=== PATIENT | male | born 1990 | race Caucasian/White ===

== ENCOUNTER 2022-12-01 15:50 | Emergency (ER) | payer OTHER, SELFPAY ==
[2022-12-01 16:07] VITALS: BP 145/77; PULSE 63; RESP 16; TEMP 36.7; O2SAT 100
--- NOTE | 2022-12-01 16:24 | ED.GENADULT ---
HPI - General Adult General Chief complaint: Skin/Abscess/Foreign Body Stated complaint: LT Ear Irritation Time Seen by Provider: 12/01/22 16:24 Source: patient, RN notes reviewed and old records reviewed Mode of arrival: ambulatory Limitations: no limitations History of Present Illness HPI narrative: 32-year-old male presents to the [facility] with concerns over a bug flying in his left ear around noon today. States that he felt fluttering and a buzzing sound. No longer feeling the buzzing but feels a pressure. Onset (ago): hour(s) (4) Related Data Allergies Allergy/AdvReac Type Severity Reaction Status Date / Time No Known Allergies Allergy Verified 12/01/22 15:56 Review of Systems Review of Systems: All systems reviewed & are unremarkable except as noted in HPI and below Constitutional: Constitutional: Reports no additional constitutional complaints Eyes: Eyes: Reports no additional eye complaints ENT: Reports as per HPI Cardiovascular: Cardiovascular: Reports no additional cardiovascular complaints, Denies chest pain and Denies dyspnea Respiratory: Respiratory: Reports no additional respiratory complaints, Denies chest congestion, Denies cough and Denies dyspnea Gastrointestinal: Gastrointestinal: Reports no additional gastrointestinal complaints, Denies abdominal pain, Denies nausea and Denies vomiting Musculoskeletal: Musculoskeletal: Reports no additional musculoskeletal complaints Integumentary/Breasts: Skin/Breast: Reports system reviewed and no additional complaints, except as docu Neurologic: Reports system reviewed and no additional complaints, except as documented Psychiatric: Psychiatric: Reports no additional psychiatric complaints Allergic/Immunologic: Allergic/Immunologic: Reports no additional allergic/immunologic complaints PMFSH Comments At the time of my signature, I reviewed and agree with the nursing past medical, surgical, social, and family history. There is no relevant family history pertinent to the patient complaint. Exam Const: General: cooperative, healthy appearing, comfortable, no acute distress, well developed, alert and well nourished Nutritional Appearance: well nourished Orientation/consciousness: patient oriented x3 Limitations: no limitations HENMT: Head: normal to inspection Ears: hearing grossly normal bilaterally, external ears normal, TM's normal bilaterally, mastoids normal and Abnormal EAC present erythema on the left; no edema, no EA tenderness, no foreign body and no otic discharge Face/Nose/Sinus: Normal external nose present, Normal nares present, Normal nasal mucous membranes and turbinates present and normal facial exam Face and sinus: normal facial exam Mouth: Yes Normal oral and palatal mucosa present, Yes lip normal and Yes moist mucous membranes Throat: posterior oropharynx normal, tonsils normal and uvula midline Eyes: General: appearance normal, both eyes and all related structures Alignment and Position: alignment normal Periorbital: periorbital findings normal Pupils: Equal, round and reactive pupils present EOM: EOMs intact bilaterally Neck: Neck: normal visual inspection, full ROM, no lymphadenopathy and no meningeal signs Chest: Chest palpation & inspection: normal inspection of the chest Resp: Effort & Inspection: normal respiratory effort and able to speak in complete sentences Auscultation: clear to auscultation bilaterally, no crackles, no rales, no rhonchi and no wheezes Cardio: Rate: regular rate Rhythm: regular rhythm Back/Spine/Pelvis: Cervical Spine: cervical ROM normal Skin: General skin exam: normal color and no rashes or lesions noted Lesions: no lesions Rashes: no rashes Wounds: no wounds Neuro: General: patient oriented x3, gait normal, tone normal, moves all extremities and no meningeal signs Cranial nerves: Yes Equal, round and reactive pupils present Cognition (Neuro): normal cognition Speech: normal speech Gait exam (N
== END 2022-12-01 16:36 | disposition home or self-care (01) ==
PROVIDERS: Emergency Provider Nurse Practitioner
DX: H61.892 Other specified disorders of left external ear (principal)
CPT/HCPCS: 99213; G0463

== ENCOUNTER 2024-03-08 16:34 | Emergency (ER) | payer OTHER, SELFPAY ==
--- NOTE | 2024-03-08 16:48 | ED_ITS ---
HPI - General Adult General Chief complaint: Skin/Abscess/Foreign Body Stated complaint: Bump on the chest and RT Arm Time Seen by Provider: 03/08/24 16:49 Source: patient Mode of arrival: ambulatory Limitations: no limitations History of Present Illness HPI narrative: 33-year-old male patient presents to [facility] with complaints of bumps on left side of the chest and the right arm. Patient states the 1 on the right arm has been there for about a month than the 1 on the chest he noticed a few days ago. Denies any pain or itching to the areas denies redness warmth. Denies fevers, body aches or chills. Denies any bothersome symptoms from the bombs. Patient states he has had a lipoma removed before and just wanted to come and get them checked out today. Related Data Allergies Allergy/AdvReac Type Severity Reaction Status Date / Time No Known Allergies Allergy Verified 03/08/24 17:09 Review of Systems Review of Systems: CONSTITUTIONAL: Denies fever, chills, or sweats. EYES: Denies visual changes, redness, or discharge. ENT: Denies rhinorrhea, congestion, sore throat, or otalgia. CARDIOVASCULAR: Denies chest pain, palpitations, or edema. RESPIRATORY: Denies cough or dyspnea. GASTROINTESTINAL: Denies abdominal pain, nausea, vomiting, or diarrhea. GENITOURINARY: Denies dysuria or hematuria. SKIN: Denies rash or itching. Positive bumps on to the left chest and the left upper arm MUSCULOSKELETAL: Denies back pain, joint pain, or myalgia. NEUROLOGIC: Denies headache, numbness, or weakness. PSYCHIATRIC: Denies anxiety or depression. PMFSH Comments At the time of my signature I agree with nursing past medical history, surgical, social, and family history. There is no relevant family history pertinent to the presenting complaint. Exam Narrative: GENERAL: Well-appearing, well-nourished, and in no acute distress. HEAD: Normocephalic, atraumatic. EYES: PERRLA and EOMI. ENT: Nares clear, no rhinorrhea or epistaxis. Mucous membranes moist. NECK: Supple. No lymphadenopathy CHEST: Clear to auscultation. No respiratory distress. HEART: Regular rate and rhythm. No murmur heard. Normal peripheral pulses. ABDOMEN: Soft, nontender, nondistended, normal active bowel sounds. EXTREMITIES: Normal range of motion. No edema. SKIN: Warm, dry, no rash. patient has a approximate 1 cm x 1 cm mobile lipoma noted to the left upper arm. No redness no warmth to the touch. No itchiness noted. Patient also has a small less than 0.5 cm lipoma noted to the left lat eral chest area no redness, no warmth, no open wounds or drainage. NEURO: No focal deficits. Alert and oriented x3. Course Course Level of Care: Express Care Visit Vital Signs Vital signs: Vital signs reviewed. Medical Decision Making MDM Narrative Medical decision making narrative: Discussed with patient that most likely of benign lipoma. Encouraged patient to follow-up with his primary doctor or Dermatology for further evaluation. Discussed with patient that we do not have ultrasound or anything that could come up with a confirmed diagnosis here. Discussed with patient that it does not appear to be infected and there is no fevers body aches or chills which is reassuring. Patient verbalized understanding denies any other questions or concerns at this time. Differential Diagnosis Differential Diagnosis: Differential diagnosis: Abscess, cellulitis, hidradenitis, laceration, puncture wound. Critical Care Time Critical Care Time Critical Care Time: No Discharge Plan Discharge Clinical Impression: Lipoma of abdominal wall Lipoma of arm Qualifiers: Laterality: right Qualified Code(s): D17.21 - Benign lipomatous neoplasm of skin and subcutaneous tissue of right arm Patient Disposition: Home, Self-Care Condition: Stable Instructions: Antibiotic Form, Lipoma (ED), Soft Tissue Mass (ED) Additional Instructions: Watch for worsening signs of infection including redness, increase in pain, increase in size or any other concerning factors then please come back for re- evaluation. Please follow-up with your primary doctor for further evaluation and treatment as need Patient Language: [place] Leonean Prescriptions: No Action [id number] 3.5-10,000-1 mg/mL-unit/mL-% drops,suspension 4 drp LEFT EAR Q8H 5 Days Qty: 10 0RF Follow-up/Referrals: Leesa,Mildred Yoo [Other] Time of Disposition: 17:12
[2024-03-08 17:00] VITALS: BP 157/86; PULSE 60; RESP 20; TEMP 36.7; O2SAT 99
--- OUTSIDE RECORDS SUMMARY | 2024-03-12 23:57 | XMS_ITS | Encounter Summary ---
Author Organization [facility] Address [address] [place] [address]. [place] [address] [place] [address] Care Team Providers Care Lead Sales Consultant Name Role Phone Mildred Landers [facility] Primary Care Provider + Encounter Details Date Type Department Care Team (Latest Contact Info) Description 12/19/2018 3:06 PM T Hospital Encounter [facility] [address] [place] [address] Mildred Landers, [facility] [address] [facility], [address] [place] [address] Discharge Disposition: Home or Self Care (Routine Discharge) Social History Tobacco Use Types Packs/Day Years Used Date Smoking Tobacco: Never Smokeless Tobacco: Never Alcohol Use Standard Drinks/Week Comments No 0 (1 standard drink = 0.6 oz pur e alcohol) AUDIT-C Answer Date Recorded Frequency of Alcohol Consumption Never 11/16/2018 Average Number of Drinks Not on file 019 Frequency of Binge Drinking Not on file 10/25 Sex and Gender Information Value Date Recorded Sex Assigned at Not on file 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 30 tablet 2 12/13/2018 09/01/2019 documented as of this encounter Progress Notes * KIERSTEN Bonner - 12/20/2018 8:29 AM CDT BEATAI present. documented in this encounter Plan of Treatment Not on file documented as of this encounter Procedures Procedure Name Priority Date/Time Associated Diagnosis Comments CBC W/DIFF AUTOMATED Routine 12/19/2018 3:19 PM CDT Cough documented in this encounter Results * (ABNORMAL) CBC W/DIFF AUTOMATED (12/19/2018 3:19 PM CDT) WBC 10.0 4.8 - 10.8 x10'3/uL 12/19/2018 4:59 PM CDT [facility] RBC 4.77 4.50 - 5.90 x10'6/uL 12/19/2018 4:59 PM CDT [facility] HGB 13.4(L) 13.5 - 17.5 G/DL 12/19/2018 4:59 PM CDT [facility] HCT 41.0 41 - 53 % 12/19/2018 4:59 PM CDT [facility] MCV 86.0 80 - 100 FL 12/19/2018 4:59 PM CDT [facility] MCH 28.1 26.0 - 34.0 PG 12/19/2018 4:59 PM CDT [facility] MCHC 32.7 31.0 - 37.0 G/DL 12/19/2018 4:59 PM CDT [facility] RDW 14.0 11.5 - 14.5 % 12/19/2018 4:59 PM CDT [facility] PLT 382(H) 150 - 350 x10'3/uL 12/19/2018 4:59 PM CDT [facility] NEUTROPHILS % 26.3(L) 50 - 70 % 12/19/2018 5:53 PM CDT [facility] LYMPHOCYTES % 59.8(H) 18 - 42 % 12/19/2018 5:53 PM CDT [facility] MONOCYTES % 11.2(H) 2.0 - 11.0 % 12/19/2018 5:53 PM CDT [facility] EOSINOPHILS 1.3 1.0 - 3.0 % 12/19/2018 5:53 PM CDT [facility] BASOPHILS 1.4(H) 0.0 - 1.0 % 12/19/2018 5:53 PM CDT [facility] ABS. NEUTROPHILS TOTAL 2.63 1.69 - 7.81 x10'3/uL 12/19/2018 5:53 PM CDT [facility] PLT MORPH. NORMAL 12/19/2018 5:53 PM CDT [facility] RBC MORPHOLOGY NORMAL 12/19/2018 5:53 PM CDT [facility] 12/19/2018 3:19 PM CDT Mildred Landers [facility] Final Re sult [facility] [address] [place] [address], documented in this encounter Visit Diagnoses Diagnosis Cough documented in this encounter Care Teams Lead Sales Consultant Relationship Specialty Start Date End Date Mildred Landers, [facility]- [address], [address] [place] [address] PCP - General NURSE PRACTITIONER 12/13/18 documented as of this encounter
--- OUTSIDE RECORDS SUMMARY | 2024-03-12 23:57 | XMS_ITS | Encounter Summary ---
Author Organization [facility] Address [address] [place] [address]. [place], [place] [address] [place] [address] Care Team Providers Care Kiosk Sales Representative Name Role Phone Unavailable Primary Care Provider Unavailabl e Encounter Details Date Type Department Care Team (Late st Contact Info) Description 01/29/[address] 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
--- OUTSIDE RECORDS SUMMARY | 2024-03-12 23:57 | XMS_ITS | Encounter Summary ---
Author Organization [facility] Address [address] [place] [address]. 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
--- OUTSIDE RECORDS SUMMARY | 2024-03-12 23:57 | XMS_ITS | Encounter Summary ---
Author Organization [facility] Address [address] [place] [address]. [place], [place] [address] [place] [address] Care Team Providers Care Can Vacuum Tester Name Role Phone Mildred Landers [facility] Primary Care Provider + Encounter Details Date Type Department Care Team (Latest Contact Info) Description 12/26/2021 Travel Social History Tobacco Use Types Packs/Day Years Used Date Smoking Tobacco: Never Smokeless Tobacco: Never Alcohol Use Standard Drinks/Week Comments No 0 (1 standard drink = 0.6 oz pur e alcohol) AUDIT-C Answer Date Recorded Frequency of Alcohol Consumption Never 11/16/2018 Average Number of Drinks Not on file 019 Frequency of Binge Drinking Not on file 10/25 PHQ-2 Answer Date Recorded PHQ-2 Score - If the patient scores above 3, please move on to questions 3-9 0 12/26/2021 Sex and Gender Information Value Date Recorded Sex Assigned at Not on file 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 No / Unsure 12/26/2021 7:43 AM CDT documented as of this encounter Plan of Treatment Not on file documented as of this encounter Visit Diagnoses Not on filedocumented in this encounter Additional Health Concerns Assessment Noted Time PHQ-9 Depression Total Score: 0 11/02/19 21 10:15 AM CDT documented as of this encounter Care Teams Can Vacuum Tester Relationship Specialty Start Date End Date Mildred Landers, [facility] [address] [facility], [address] [place] [address] PCP - General NURSE PRACTITIONER 12/13/18 documented as of this encounter
--- OUTSIDE RECORDS SUMMARY | 2024-03-12 23:57 | XMS_ITS | Encounter Summary ---
Author Organization [facility] Address [address] [place] [address]. [place], [place] [address] [place] [address] Care Team Providers Care Helium Arc Welder Name Role Phone Mildred Landers [facility] Primary Care Provider + Reason for Referral * Consultation/Treatment (Routine) - Closed Specialty Diagnoses / Procedures Referred By Enrique murillo Referred To Contact GENERAL SURGERY / SURGERY Diagnoses Lipoma of torso Procedures OFFICE/OUTPT VISIT,NEW,LEVL III OFFICE/OUTPT VISIT,NEW,LEVL IV OFFICE/OUTPT VISIT,NEW,LEVL V OFFICE/OUTPT VISIT,EST,LEVL III OFFICE/OUTPT VISIT,EST,LEVL IV OFFICE/OUTPT VISIT,EST,LEVL V Mildred Landers [facility] [address] [address] Phone: tel: fax: Hector Nava MD Phone: tel: fax: Referral ID Status Reason Start Date Expiration Date Visits Re quested Visits Authorized [id number] Closed 12/26/2021 01/27/2023 99 99 Reason for Visit * Reason Comments Follow Up On stomach issues-wa s at [place] [facility]-also has lump to left side of chest-getting bigger-wanting checked and possibley referral to get removed Encounter Details Date Type Department Care Team (Late st Contact Info) Description 12/26/2021 12:00 PM CDT Office Visit [facility] [address] [place] [address] Mildred Landers, [facility]- [address], [address] [place] [address] Follow Up (On stomach issues-was at [place] [facility]-also has lump to left side of chest-getting bigger-wanting checked and possibley referral to get removed) Social History Tobacco Use Types Packs/Day Years [...] on file 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 No / Unsure 12/26/2021 7:43 AM CDT documented as of this encounter Last Filed Vital Signs Vital Sign Reading Time Taken Comments Blood Pressure 138/82 12/26/2021 11:56 AM CDT Pulse 103 12/26/2021 11:56 AM CDT Temperature 36.7 ??C (98 ??F) 12/26/2021 11: 56 AM CDT Respiratory Rate 20 12/26/2021 11:5 6 AM CDT Oxygen Saturation 100% 12/26/2021 11: 56 AM CDT Inhaled Oxygen Concentration - - Weight 102.9 kg (226 lb 12.8 oz) 2021 11:56 AM CDT Height 177.8 cm (5' 10 ) 12/26/2021 11: 56 AM CDT Body Mass Index 32.54 12/26/2021 11:56 AM CDT documented in this encounter Progress Notes * Mildred Landers, DIRECTOR OF INFECTION PREVENTION-BC - 12/26/2021 12:00 PM CDT Images from the original note were not included. Reason for Visit: Follow Up (On stomach issues-was at [place] [facility]-also has lump to left side of chest-getting bigger-wanting checked and possibley referral to get removed) History of Present Illness: Roger Kathleen is 31-year-old year-old male who presents to [facility] for follow up for abdominal pain. Presented to the ER on 12/23/2021. Imaging and labs completed with normal findings. Results reviewed prior to visit today. Denies any vomiting or diarrhea. Pain has mostly resolved. Started protonix as directed. Roger also complains of a skin lesion to left side of chest that has been present he estimates for 8years. Recently tender with deep palpation or pressure. No trauma to site. No erythema or edema, but Roger feels lesion may have increased in size. ROS: Review of Systems Constitutional: Negative. Negative for chills and fever. HENT: Negative. Eyes: Negative. Respiratory: Negative. Cardiovascular: Negative. Gastrointestinal: Negative. Genitourinary: Negative. Musculoskeletal: Negative. Skin: Negative for itching and rash. Neurological: Negative. Psychiatric/Behavioral: Negative. Medications: Current Outpatient Medications: ??? pantoprazole EC (PROTONIX) 20 MG tablet, Take 1 tablet (20 mg total) by mouth daily., Disp: 30 tablet, Rfl: 0 No Known Allergies Past Medical History: Diagnosis Date ??? Asthma as a child ??? Epididymitis ??? Varicella history as a child Past Surgical History: Procedure Laterality Date ??? MYRINGOTOMY Social History Socioeconomic History ??? Marital status: Tobacco Use ??? Smoking status: Never Smoker ??? Smokeless tobacco: Never Used Vaping Use ??? Vaping Use: Never used Substance and Sexual Activity ??? Alcohol use: No ??? Drug use: No Family History Problem Relation Name Age of Onset ??? Hypertension Father ??? Cancer Maternal Grandmother lung ??? Diabetes Neg Hx ??? Heart Attack Neg Hx ??? Stroke Neg Hx Family Status Relation Name Status ??? Father (Not Specified) ??? MGM (Not Specified) ??? Neg Hx (Not Specified) Physical Exam Vitals reviewed. Constitutional: General: He is not in acute distress. Appearance: He is not diaphoretic. HENT: Head: Normocephalic and atraumatic. Right Ear: External ear normal. Left Ear: External ear normal. Nose: Nose normal. Mouth/Throat: Pharynx: No oropharyngeal exudate. Eyes: General: Right eye: No discharge. Left eye: No discharge. Conjunctiva/sclera: Conjunctivae normal. Right eye: Right conjunctiva is not injected. No hemorrhage. Left eye: Left conjunctiva is not injected. No hemorrhage. Pupils: Pupils are equal, round, and reactive to light. Neck: Trachea: No tracheal deviation. Cardiovascular: Rate and Rhythm: Normal rate and regular rhythm. Heart sounds: Normal heart sounds. No murmur heard. Pulmonary: Effort: No respiratory distress. Breath sounds: No wheezing or rales. Chest: Comments: 3 x 2 cm mobile subcutaneous lesions consistent with a lipoma. No erythema, ulceration, or tenderness noted Abdominal: General: Bowel sounds are normal. Palpations: Abdomen is soft. Lymphadenopathy: Cervical: No cervical adenopathy. Skin: Coloration: Skin is not pale. Neurological: Mental Status: He is alert and oriented to person, place, and time. Gait: Gait is intact. Psychiatric: Judgment: Judgment normal. Filed Vitals: 12/26/21 1156 BP: 138/82 Pulse: 103 Resp: 20 Temp: 98 ??F (36.7 ??C) SpO2: 100% Weight: 102.9 kg (226 lb 12.8 oz) Height: 5' 10 (1.778 m) Body mass index is 32.54 kg/m??. PHQ-9: Over the last two weeks, how often have you been bothered by any of the following problems? 11/01/2020 12/26/2021 LITTLE INTEREST OR PLEASURE IN DOING THINGS 0-Not at All 0-Not at All FEELING DOWN, DEPRESSSED,OR HOPELESS 0-Not at All 0-Not at All PHQ2 DEPRESSION TOTAL SCORE 0 0 DEPRESSION SCREENING TOTAL SCORE 0 - No flowsheet data found. Assessment Encounter Diagnose(s) ICD-10-CM ICD-9-CM SNOMED CT(R) 1. Gastroesophageal reflux disease without esophagitis K21.9 530.81 GASTROESOPHAGEAL REFLUX DISEASEWITHOUT ESOPHAGITIS pantoprazole EC (PROTONIX) 20 MG tablet 2. Lipoma of torso D17.1 214.1 LIPOMA OF TRUNK Ambulatory referral to General Surgery ([facility]) Recommendations and Plan: 1. Gastroesophageal reflux disease without esophagitis Encouraged healthy diet with decreased fat content, routine exercise Will continue PPI for 4-8 weeks Refill sent If persists can consider EGD and even an RUQ us Pt verbalized undestanding - pantoprazole EC (PROTONIX) 20 MG tablet; Take 1 tablet (20 mg total) by mouth daily. Dispense: 30tablet; Refill: 0 2. Lipoma of torso Referred to general surgery for removal of lipoma - Ambulatory referral to General Surgery ([facility]) KIERSTEN BONNER Cosigned by Sohail Mancera MD at 12/26/2021 4:35 PM CDT documented in this encounter Plan of Treatment Scheduled Referrals Name Type Priority Associated Diagnoses Orde r Schedule Ambulatory referral to General Surgery ([facility]) Referral Routine Lipoma of torso Ordered: 12/26/2021 documented as of this encounter Visit Diagnoses Diagnosis Gastroesophageal reflux disease without esophagitis- Primary Esophageal reflux Lipoma of torso documented in this encounter Additional Health Concerns Assessment Noted Time PHQ-9 Depression Total Score: 0 11/02/19 21 10:15 AM CDT documented as of this encounter Care Teams Helium Arc Welder Relationship Specialty Start Date End Date Mildred Landers FNP-BC [address] [facility], [address] [place] [address] PCP - General NURSE PRACTITIONER 12/13/18 documented as of this encounter
--- OUTSIDE RECORDS SUMMARY | 2024-03-12 23:57 | XMS_ITS | Encounter Summary ---
Author Organization [facility] Address [address] [place] [address]. [place] [address] [place] [address] Care Team Providers Care Powderer Name Role Phone Mildred Landers [facility] Primary Care Provider + Reason for Visit * Reason Onset Date Comments Prior Authorization 01/09/2022 Encounter Details Date Type Department Care Team (Late st Contact Info) Description 01/09/2022 Telephone [facility] General Surgery - [place] [address] [facility], [address] [place] [address] [place] [address] [place] [address] [address] [place] [address] Prior Authorization Social History Tobacco Use Types Packs/Day Years [...] on file 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 No / Unsure 01/03/2022 11:14 AM CDT documented as of this encounter Progress Notes * Sissy Rendon RN - 01/09/2022 1:46 PM CDT Called patient's insurance to check if prior authorization is required for his in office procedure that is coming up- spoke to Sandy and no prior authorization is required for this code. Reference number for the call is [id number]. documented in this encounter Plan of Treatment Not on file documented as of this encounter Visit Diagnoses Not on filedocumented in this encounter Additional Health Concerns Assessment Noted Time PHQ-9 Depression Total Score: 0 11/02/19 21 10:15 AM CDT documented as of this encounter Care Teams Powderer Relationship Specialty Start Date End Date Mildred Landers, CLINICAL INTERVIEWER- [address] [facility], [address] [place] [address] PCP - General NURSE PRACTITIONER 12/13/18 documented as of this encounter
--- OUTSIDE RECORDS SUMMARY | 2024-03-12 23:57 | XMS_ITS | Encounter Summary ---
Author Organization [facility] Address [address] [place] [address]. 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
--- OUTSIDE RECORDS SUMMARY | 2024-03-12 23:57 | XMS_ITS | Encounter Summary ---
Author Organization [facility] Address [address] [place] [address]. [place] [address] [place] [address] Care Team Providers Care Jumpbasting Collar Baster Name Role Phone Mildred Landers [facility] Primary Care Provider + Reason for Visit * Reason Comments Mass Here for excision of mass on anterior chest wall * Consultation/Treatment (Routine) - Closed Specialty Diagnoses / Procedures Referred By Enrique murillo Referred To Contact SURGERY Diagnoses Exc. soft tissue mass [place] [address] [place] [address] Phone: tel: fax: [place] [address] [place] [address] Phone: tel: fax: Referral ID Status Reason Start Date Expiration Date Visits Re quested Visits Authorized [id number] Closed 01/26/2022 01/27/2023 99 99 Encounter Details Date Type Department Care Team (Late st Contact Info) Description 01/26/2022 4:00 PM CDT Office Visit [facility] Medical Group General Surgery - [place] [id number] [facility], [address] [place] [address] [place] [address] [place], [place] [address] Mass (Here for excision of mass on anterior chest wall ) Social History Tobacco Use Types Packs/Day Years [...] on file 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 No / Unsure 01/26/2022 3:39 PM CDT documented as of this encounter Last Filed Vital Signs Vital Sign Reading Time Taken Comments Blood Pressure 139/86 01/26/2022 3:52 PM CDT Pulse 72 01/26/2022 3:52 PM CDT Temperature 37.4 ??C (99.3 ??F) 01/26/2022 3:52 PM CD T Respiratory Rate - - Oxygen Saturation 98% 01/26/2022 3:52 PM CDT Inhaled Oxygen Concentration - - Weight 103 kg (227 lb) 01/26/2022 3:52 PM CDT Height 177.8 cm (5' 10 ) 01/26/2022 3:52 PM CDT Body Mass Index 32.57 01/26/2022 3:52 PM CDT documented in this encounter Patient Instructions * Patient Instructions* Hector Boyd MD - 01/26/2022 4:00 PM CDT If any of the following occur, call your doctor or go to the nearest emergency room: Increased redness, pain, swelling or red streaks Fever (temperature > 101 ?F) Excessive or green drainage or foul odor If the edges or the wound do not appear to be closing together or wound breaks open documented in this encounter Progress Notes * Hector Boyd MD - 01/26/2022 4:00 PM CDT The patient is here for a planned procedure. Date of Procedure: 01/26/22 Preoperative Diagnosis: Soft tissues mass, 2 cm x 2 cm, left part of the anterior chest wall Procedure(s): Excision of soft tissue mass, 2 cm x 2 cm, left part of the anterior chest wall Anesthesia: Local Anaesthesia Estimated Blood Loss: Minimal Procedure: The patient was placed in supine position. A time-out was completed verifying correct patient,procedure, site, positioning and equipment???s prior to beginning the procedure procedures. The surgery site was cleaned Betadine and prepped in normal sterile fashion. Local anesthesia in the form of Lidocaine 2% without epinephrine+ 0.5 % Marcaine without epinephrine was infiltrated at the site of surgery. A 2 cm incision was mad over the already marked mass. The incision was deepened, the mass identified and dissected free from the surrounding structures, removed in total and sent for pathology. Hemostasis was secured using pressure electrocautery.The skin was closed using 3/0 Nylon. Sterile dressing was applied. The patient tolerated the procedure very well. The patient was given instruction regarding post-operative wound care. By: HECTOR BOYD MD, 01/26/2022, 3:55 PM documented in this encounter Plan of Treatment Scheduled Orders Name Type Priority Associated Diagnoses Orde r Schedule EXC SKIN BENIG 2.1-3CM REMAINDR BODY Procedures Routine Soft tissue mass Ordered: 01/26/2022 documented as of this encounter Visit Diagnoses Diagnosis Soft tissue mass- Primary Disorders of soft tissue, unspecified documented in this encounter Additional Health Concerns Assessment Noted Time PHQ-9 Depression Total Score: 0 11/02/19 21 10:15 AM CDT documented as of this encounter Care Teams Jumpbasting Collar Baster Relationship Specialty Start Date End Date Mildred Landers FNP-NADEGE [address] [facility], [address] [place] [address] PCP - General NURSE PRACTITIONER 12/13/18 documented as of this encounter
--- OUTSIDE RECORDS SUMMARY | 2024-03-12 23:57 | XMS_ITS | Encounter Summary ---
Author Organization [facility] Address [address] [place] [address]. 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
--- OUTSIDE RECORDS SUMMARY | 2024-03-12 23:57 | XMS_ITS | Encounter Summary ---
Author Organization [facility] Address [address] [place] [address]. [place] [address] [place] [address] Care Team Providers Care Software Reliability Engineer Name Role Phone Mildred Landers [facility] Primary Care Provider + Encounter Details Date Type Department Care Team (Latest Contact Info) Description 01/14/2021 3:36 PM CDT - 01/14/2021 7:33 PM CDT Hospital Encounter [facility] [address] [place] [address] Mildred Landers, [facility] [address] [facility], [address] [place] [id number] Discharge Disposition: Home or Self Care (Routine [...] please move on to questions 3-9 0 11/01/2020 Sex and Gender Information Value Date Recorded Sex Assigned at Not on file 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 No / Unsure 01/14/2021 8:43 AM CDT documented as of this encounter Plan of Treatment Not on file documented as of this encounter Procedures Procedure Name Priority Date/Time Associated Diagnosis Comments XR CHEST PA+LAT Routine 01/14/2021 4:37 PM CDT Chest discomfort documented in this encounter Results * XR CHEST PA+LAT (01/14/2021 4:37 PM CDT) Anatomical Region Laterality Modality Chest Radiographic Judith ging 01/14/2021 4:07 PM CDT Impressions 01/14/2021 4:07 PM CDT IMPRESSION: No radiographic evidence of acute cardiopulmonary disease. Referred By: ?? Interpreted By: Misael Blum MD, 01/14/2021 4:07 PM Narrative 01/14/2021 4:07 PM CDT EXAMINATION: XR CHEST PA+LAT INDICATIONS: Chest discomfort COMPARISON: 12/19/2018 FINDINGS: Frontal and lateral chest radiographs demonstrate normal lung expansion without consolidation, effusion, or pneumothorax. No bulky hilar adenopathy. ?? The cardiomediastinal contours are maintained. Heart size is normal. No subdiaphragmatic free air. The osseous thorax is intact without displaced rib fracture. No acute or aggressive osseous abnormality. Procedure Note Misael Blum MD - 01/14/2021 EXAMINATION: XR CHEST PA+LAT INDICATIONS: Chest discomfort COMPARISON: 12/19/2018 FINDINGS: Frontal and lateral chest radiographs demonstrate normal lung expansionwithout consolidation, effusion, or pneumothorax. No bulky hilar adenopathy. The cardiomediastinal contours are maintained. Heart size is normal. No subdiaphragmatic free air. The osseous thorax is intact without displaced rib fracture. No acute or aggressive osseous abnormality. IMPRESSION: No radiographic evidence of acute cardiopulmonary disease. Referred By: Interpreted By: Misael Blum MD, 01/14/2021 4:07 PM Mildred Landers CD REACTOR OPERATOR-BC GENERAL IMAGING Final Re sult documented in this encounter Visit Diagnoses Diagnosis Chest discomfort Other chest pain documented in this encounter Additional Health Concerns Assessment Noted Time PHQ-9 Depression Total Score: 0 11/02/19 21 10:15 AM CDT documented as of this encounter Care Teams Software Reliability Engineer Relationship Specialty Start Date End Date Mildred Landers, [facility]- [address] [facility], [address] [place] [address] PCP - General NURSE PRACTITIONER 12/13/18 documented as of this encounter
--- OUTSIDE RECORDS SUMMARY | 2024-03-12 23:57 | XMS_ITS | Encounter Summary ---
Author Organization [facility] Address [address] [place] [address]. [place] [address] [place] [address] Care Team Providers Care Truck Bench Mechanic Name Role Phone Mildred Landers [facility] Primary Care Provider + Reason for Visit * Reason Onset Date Comments Advise 01/26/2021 Encounter Details Date Type Department Care Team (Late st Contact Info) Description 01/26/2021 Telephone [facility] [address] [place] [address] Mildred Landers, 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 No / Unsure 01/14/2021 7:37 PM CDT documented as of this encounter Progress Notes * Sandy Villa - 01/27/2021 10:09 AM CDT Notified Roger that he can have 2nd. covid vaccine. Roger voiced understanding. * KIERSTEN Bonner - 01/27/2021 9:09 AM CDT I think his prior symptoms were from shingles. He may have a second dose of his COVID vaccination * Nancy De La Torre RN - 01/26/2021 9:04 AM CDT Patient seen on 01/14/21 for issues after first covid vaccination. Please advise? * Sandy Villa - 01/26/2021 8:06 AM CDT He wants to know if he can have a 2nd covid vaccine.?? He previously was told by Mildred not to havethe 2nd shot a couple of weeks ago. He now wants to know if it's ok to have the 2nd. Vaccine? Please advise. documented in this encounter Plan of Treatment Not on file documented as of this encounter Visit Diagnoses Not on filedocumented in this encounter Additional Health Concerns Assessment Noted Time PHQ-9 Depression Total Score: 0 11/02/19 10:15 AM CDT documented as of this encounter Care Teams Truck Bench Mechanic Relationship Specialty Start Date End Date Mildred Landers FNP-BC [address] [facility], [address] [place] [address] PCP - General NURSE PRACTITIONER 12/13/18 documented as of this encounter
--- OUTSIDE RECORDS SUMMARY | 2024-03-12 23:57 | XMS_ITS | Encounter Summary ---
Author Organization [facility] Address [address] [place] [address]. [place] [address] [place] [address] Care Team Providers Care Archeology Professor Name Role Phone Mildred Landers [facility] Primary Care Provider + Reason for Visit * Reason Comments Other Sharp pain when exha ling,x-rasy were doen today Encounter Details Date Type Department Care Team (Late st Contact Info) Description 12/19/2018 4:20 PM CDT Office Visit 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 Gender Identity Not on file Sexual Orientation Not on file documented as of this encounter Last Filed Vital Signs Vital Sign Reading Time Taken Comments Blood Pressure 140/82 12/19/2018 3:59 PM CDT Pulse 101 12/19/2018 3:59 PM CDT Temperature 37.1 ??C (98.7 ??F) 12/19/2018 3:59 PM CD T Respiratory Rate 20 12/19/2018 3:59 PM CDT Oxygen Saturation 99% 12/19/2018 3:59 PM CDT Inhaled Oxygen Concentration - - Weight 99.8 kg (220 lb) 12/19/2018 3:59 PM CDT Height 177.8 cm (5' 10 ) 12/19/2018 3:59 PM CDT Body Mass Index 31.57 12/19/2018 3:59 PM CDT documented in this encounter Patient Instructions * Patient Instructions* Demond Beach MD - 12/19/2018 4:20 PM CDT Antibiotic and further steroid and call back if does not resolve. documented in this encounter Progress Notes * Demond Beach MD - 12/19/2018 4:20 PM CDT Chief Complaint: Other (Sharp pain when exhaling,x-rasy were doen today ) HPI: Roger Kathleen is a 28-year-old male here for complaints of follow-up on cough. Treated with steroid last week and did seem to help initially but the past few days cough is worse and getting pain to right lower side of chest with coughing Had CXR yesterday which did indicate probable bronchitis. ROS: Review of Systems Constitutional: Negative for fever. HENT: Positive for congestion. Negative for sore throat. Respiratory: Positive for cough and sputum production. Cardiovascular: Positive for chest pain (with coughing). Gastrointestinal: Negative for abdominal pain. Neurological: Negative for headaches. Physical Exam Constitutional: He is well-developed, well-nourished, and in no distress. HENT: Nose: Nose normal. Mouth/Throat: Oropharynx is clear and moist. Eyes: Conjunctivae are normal. Neck: Neck supple. Cardiovascular: Normal rate, regular rhythm and intact distal pulses. Pulmonary/Chest: No respiratory distress. He has wheezes (mild expiratory). He has rales in the right lower field and the left lower field. Abdominal: Soft. Musculoskeletal: He exhibits no edema. Lymphadenopathy: He has no cervical adenopathy. Current Outpatient Medications Medication Sig ??? azithromycin (ZITHROMAX Z-CAR) 250 MG tablet Take 2 tablets by mouth on day one then 1 daily for four days. ??? loratadine 10 MG tablet Take 1 tablet (10 mg total) by mouth daily. ??? predniSONE 20 MG tablet Take 1 tablet (20 mg total) by mouth 2 (two) times daily for 5 days. No current facility-administered medications for this visit. Past Medical History: Diagnosis Date ??? Asthma as a child ??? Epididymitis ??? Varicella history as a child Past Surgical History: Procedure Laterality Date ??? MYRINGOTOMY Social History Tobacco Use ??? Smoking status: Never Smoker ??? Smokeless tobacco: Never Used Substance Use Topics ??? Alcohol use: No Frequency: Never Family History Problem Relation Name Age of Onset ??? Hypertension Father ??? Cancer Maternal Grandmother lung ??? Diabetes Neg Hx ??? Heart Attack Neg Hx ??? Stroke Neg Hx Vitals: 12/19/18 1559 BP: 140/82 BP Location: Left arm Patient Position: Sitting Cuff size: Adult Regular Pulse: 101 Temp: 98.7 ??F (37.1 ??C) TempSrc: Oral Weight: 99.8 kg (220 lb) Height: 5' 10 (1.778 m) Diagnoses/Impression: Bronchitis (primary encounter diagnosis) Recommendations and Plan: Orders Placed This Encounter ??? predniSONE 20 MG tablet Sig: Take 1 tablet (20 mg total) by mouth 2 (two) times daily for 5 days. Dispense: 10 tablet Refill: 0 ??? azithromycin (ZITHROMAX Z-CAR) 250 MG tablet Sig: Take 2 tablets by mouth on day one then 1 daily for four days. Dispense: 6 tablet Refill: 0 Patient Instructions Antibiotic and further steroid and call back if does not resolve. DEMOND BEACH MD Referring Provider: Self Referral PCP: DEMOND BEACH MD documented in this encounter Plan of Treatment Not on file documented as of this encounter Visit Diagnoses Diagnosis Bronchitis- Primary Bronchitis, not specified as acute or chronic documented in this encounter Care Teams Archeology Professor Relationship Specialty Start Date End Date Mildred Landers, [employer]- [address] [facility] [place], [address] [place], [place] [address] PCP - General NURSE PRACTITIONER 12/13/18 documented as of this encounter
--- OUTSIDE RECORDS SUMMARY | 2024-03-12 23:57 | XMS_ITS | Encounter Summary ---
Author Organization [facility] Address [address] [place] [address]. 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 No / Unsure 09/01/2019 4:01 PM CDT documented as of this encounter Plan of Treatment Not on file documented as of this encounter Visit Diagnoses Not on filedocumented in this encounter Care Teams Equipment Operating Engineer Relationship Specialty Start Date End Date Mildred Landers, [facility] [address] [facility], [address] [place] [address] PCP - General NURSE PRACTITIONER 12/13/18 documented as of this encounter
--- OUTSIDE RECORDS SUMMARY | 2024-03-12 23:57 | XMS_ITS | Encounter Summary ---
Author Organization [facility] Address [address] [place] [address]. 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 Gender Identity Not on file Sexual Orientation [...] Procedure Name Priority Date/Time Associated Diagnosis Comments D-DIMER, QUANTITATIVE Routine 01/14/2021 3:42 PM CDT Chest discomfort documented in this encounter Results * (ABNORMAL) D-DIMER, QUANTITATIVE (01/14/2021 3:42 PM CDT) D-DIMER 1,066(HH) 0 - 500 ng{FEU}/mL 01/14/2021 6:52 PM CDT [facility] Comment: CALLED RESULT TO LEN ACOSTA AT [id number] [id number] EBJ READ BACK AND VERIFIED D-Dimer values less than or equal to 500 ng/mL FEU have a negative predictive value of >95% for exclusion of deep vein thrombosis and pulmonary embolism. In patients over 50 (who tend to have higher normal baseline D-Dimer values), recent studies suggest age-adjusted D-Dimer cutoff values (calculated as: age [years] x 10 ng/mL) result in equivalent outcomes and no additional false negative findings. 01/14/2021 3:42 PM CDT Mildred Landers [facility] Final Re sult [facility] [address] [place] [address], documented in this encounter Visit Diagnoses Diagnosis Chest discomfort Other chest pain documented in this encounter Additional Health Concerns Assessment Noted Time PHQ-9 Depression Total Score: 0 11/02/19 21 10:15 AM CDT documented as of this encounter Care Teams Carbonation Tester Relationship Specialty Start Date End Date Mildred Landers, LOUISE-BC [address] [facility], [address] [place] [address] PCP - General NURSE PRACTITIONER 12/13/18 documented as of this encounter
--- OUTSIDE RECORDS SUMMARY | 2024-03-12 23:57 | XMS_ITS | Encounter Summary ---
Author Organization [facility] Address [address] [place] [address]. 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
--- OUTSIDE RECORDS SUMMARY | 2024-03-12 23:57 | XMS_ITS | Encounter Summary ---
Author Organization [facility] Address [address] [place] [address]. [place] [address] [place] [address] Care Team Providers Care Carton Stenciler Name Role Phone Mildred Landers [facility] Primary Care Provider + Reason for Visit * Reason Comments Other chest discomfort aft er moderna vaccine Encounter Details Date Type Department Care Team (Late st Contact Info) Description 01/14/2021 3:00 PM CDT Office Visit 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 No / Unsure 01/14/2021 8:43 AM CDT documented as of this encounter Last Filed Vital Signs Vital Sign Reading Time Taken Comments Blood Pressure 135/89 01/14/2021 3:27 PM CDT Pulse 95 01/14/2021 3:05 PM CDT Temperature 37.1 ??C (98.7 ??F) 01/14/2021 3:05 PM CD T Respiratory Rate 14 01/14/2021 3:05 PM CDT Oxygen Saturation 99% 01/14/2021 3:05 PM CDT Inhaled Oxygen Concentration - - Weight 98.9 kg (218 lb) 01/14/2021 3:05 PM CDT Height 177.8 cm (5' 10 ) 01/14/2021 3:05 PM CDT Body Mass Index 31.28 01/14/2021 3:05 PM CDT documented in this encounter Progress Notes * Mildred Landers, WEB PAGE DESIGNER-BC - 01/14/2021 3:00 PM CDT Reason for Visit: Other (chest discomfort after moderna vaccine) History of Present Illness: Roger Kathleen is 30-year-old year-old male who presents to [facility] with complaints of chest tightness following COVID- 19 vaccination on 01/02/2021. Symptoms not immediate. Denies SOB, fever, cough, or palpitations. Feels symptoms have worsened this week. Family history of palpitations. ROS: Review of Systems Constitutional: Negative. Negative for chills and fever. HENT: Negative. Eyes: Negative. Respiratory: Negative. Cardiovascular: Positive for chest pain. Negative for palpitations, orthopnea, claudication and legswelling. Gastrointestinal: Negative. Genitourinary: Negative. Musculoskeletal: Negative. Skin: Negative. Neurological: Negative. Psychiatric/Behavioral: Negative. Medications: No current outpatient medications on file. No Known Allergies Past Medical History: Diagnosis Date ??? Asthma as a child ??? Epididymitis ??? Varicella history as a child Past Surgical History: Procedure Laterality Date ??? MYRINGOTOMY Social History Socioeconomic History ??? Marital status: Spouse name: Not on file ??? Number of children: Not on file ??? Years of education: Not on file ??? Highest education level: Not on file Occupational History ??? Not on file Tobacco Use ??? Smoking status: Never Smoker ??? Smokeless tobacco: Never Used Substance and Sexual Activity ??? Alcohol use: No ??? Drug use: No ??? Sexual activity: Not on file Other Topics Concern ??? Not on file Social History Narrative ??? Not on file Social Determinants of Health Financial Resource Strain: ??? Difficulty of Paying Living Expenses: Food Insecurity: ??? Worried About Running Out of Food in the Last Year: ??? Ran Out of Food in the Last Year: Transportation Needs: ??? Lack of Transportation (Medical): ??? Lack of Transportation (Non-Medical): Physical Activity: ??? Days of Exercise per Week: ??? Minutes of Exercise per Session: Stress: ??? Feeling of Stress : Social Connections: ??? Frequency of Communication with Friends and Family: ??? Frequency of Social Gatherings with Friends and Family: ??? Attends Congregation Services: ??? Active Member of Clubs or Organizations: ??? Attends Club or Organization Meetings: ??? Marital Status: Intimate Partner Violence: ??? Fear of Current or Ex-Partner: ??? Emotionally Abused: ??? Physically Abused: ??? Sexually Abused: Family History Problem Relation Name Age of Onset ??? Hypertension Father ??? Cancer Maternal Grandmother lung ??? Diabetes Neg Hx ??? Heart Attack Neg Hx ??? Stroke Neg Hx Family Status Relation Name Status ??? Father (Not Specified) ??? MGM (Not Specified) ??? Neg Hx (Not Specified) Physical Exam Constitutional: He is oriented to person, place, and time and well-developed, well-nourished, and in no distress. No distress. HENT: Head: Normocephalic and atraumatic. Right Ear: External ear normal. Left Ear: External ear normal. Nose: Nose normal. Mouth/Throat: Oropharynx is clear and moist. No oropharyngeal exudate. Eyes: Pupils are equal, round, and reactive to light. Conjunctivae and EOM are normal. Right eye exhibits no discharge. Left eye exhibits no discharge. Right conjunctiva is not injected. Right conjunctiva has no hemorrhage. Left conjunctiva is not injected. Left conjunctiva has no hemorrhage. Neck: No tracheal deviation present. Cardiovascular: Normal rate and intact distal pulses. An irregularly irregular rhythm present. Murmur heard. Systolic murmur is present with a grade of 2/6. Intermittent soft murmur noted Pulmonary/Chest: No respiratory distress. He has no wheezes. He has no rales. Abdominal: Soft. Bowel sounds are normal. Lymphadenopathy: He has no cervical adenopathy. Neurological: He is alert and oriented to person, place, and time. Gait normal. Skin: He is not diaphoretic. No pallor. Psychiatric: Judgment normal. Vitals reviewed. Filed Vitals: 01/14/21 1505 01/14/21 1527 BP: (!) 156/91 135/89 Pulse: 95 Resp: 14 Temp: 98.7 ??F (37.1 ??C) TempSrc: Skin SpO2: 99% Weight: 98.9 kg (218 lb) Height: 5' 10 (1.778 m) Body mass index is 31.28 kg/m??. PHQ-9: Over the last two weeks, how often have you been bothered by any of the following problems? 11/01/2020 LITTLE INTEREST OR PLEASURE IN DOING THINGS 0-Not at All FEELING DOWN, DEPRESSSED,OR HOPELESS 0-Not at All PHQ2 DEPRESSION TOTAL SCORE 0 DEPRESSION SCREENING TOTAL SCORE 0 No flowsheet data found. Assessment Encounter Diagnose(s) ICD-10-CM ICD-9-CM SNOMED CT(R) 1. Chest discomfort R07.89 786.59 CHEST DISCOMFORT ECG 12 lead (Hosp Performed) XR CHEST PA+LAT D-DIMER, QUANTITATIVE Recommendations and Plan: 1. Chest discomfort Will check EKG, chest XR, and D-dimer Discussed no known guideline for work up of these symptoms after COVID-19 vaccination. - ECG 12 lead (Hosp Performed); Future - XR CHEST PA+LAT; Future - D-DIMER, QUANTITATIVE; Future KIERSTEN BONNER documented in this encounter Plan of Treatment Not on file documented as of this encounter Results * XR CHEST PA+LAT [...] Blum MD, 01/14/2021 4:07 PM Mildred Landers WEB PAGE DESIGNER-BC [facility] Final Re sult * (ABNORMAL) D-DIMER, QUANTITATIVE (01/14/2021 3:42 PM CDT) D-DIMER 1,066(HH) 0 - 500 ng{FEU}/mL 01/14/2021 6:52 PM CDT [facility] Comment: CALLED RESULT TO LEN ACOSTA AT [id number] EBJ READ BACK AND VERIFIED D-Dimer values [...] false negative findings. 01/14/2021 3:42 PM CDT us Mildred [facility] Final Re sult [facility] [address] [place] [address], documented in this encounter Visit Diagnoses Diagnosis Chest discomfort- Primary Other chest pain Chest discomfort Other chest pain documented in this encounter Additional Health Concerns Assessment Noted Time PHQ-9 Depression Total Score: 0 11/02/19 21 10:15 AM CDT documented as of this encounter Care Teams Carton Stenciler Relationship Specialty Start Date End Date Mildred Landers FNP-BC [address] [facility], [address] [place] [address] PCP - General NURSE PRACTITIONER 12/13/18 documented as of this encounter
--- OUTSIDE RECORDS SUMMARY | 2024-03-12 23:57 | XMS_ITS | Encounter Summary ---
Author Organization [facility] Address [address] [place] [address]. [place] [address] [place] [address] Care Team Providers Care Tetryl Nitrator Operator Name Role Phone Mildred Landers [facility] Primary Care Provider + Reason for Visit * Reason Onset Date Comments Vasectomy 10/06/2022 Encounter Details Date Type Department Care Team (Late st Contact Info) Description 10/06/[address] [facility] [address] [place] [address] Mildred Landers, [facility] [address] [facility], [address] [place] [address] Vasectomy Social History Tobacco Use Types Packs/Day Years Used Date Smoking Tobacco: Never Smokeless Tobacco: Never Alcohol Use Standard Drinks/Week Comments No 0 (1 standard drink = 0.6 oz pur e alcohol) AUDIT-C Answer Date Recorded Frequency of Alcohol Consumption Never 11/16/2018 Average Number of Drinks Not on file 019 Frequency of Binge Drinking Not on file 10/25 PHQ-2 Answer Date Recorded Patient Health Questionnaire-2 Score 0 10/10/2022 Sex and Gender Information Value Date Recorded Sex Assigned at Not on file 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 Is this something she would do as a VV? If so, how long of an appt? OK to leave a detailed vm documented in this encounter Plan of Treatment Not on file documented as of this encounter Visit Diagnoses Not on filedocumented in this encounter Additional Health Concerns Assessment Noted Time PHQ-9 Depression Total Score: 0 11/02/19 21 10:15 AM CDT documented as of this encounter Care Teams Tetryl Nitrator Operator Relationship Specialty Start Date End Date Mildred Landers, IMPREGNATOR HELPER-BC [address] [facility], [address] [place] [address] PCP - General NURSE PRACTITIONER 12/13/18 documented as of this encounter
--- OUTSIDE RECORDS SUMMARY | 2024-03-12 23:57 | XMS_ITS | Encounter Summary ---
Author Organization [facility] Address [address] [place] [address]. [place] [address] [place] [address] Care Team Providers Care Care Coordination Manager Name Role Phone Mildred Landers [facility] Primary Care Provider + Reason for Referral * Consultation (Urgent) - Closed Specialty Diagnoses / Procedures Referred By Enrique murillo Referred To Contact OTOLARYNGOLOGY Diagnoses Epistaxis, recurrent Procedures OFFICE/OUTPT VISIT,NEW,LEVL III OFFICE/OUTPT VISIT,NEW,LEVL IV OFFICE/OUTPT VISIT,NEW,LEVL V OFFICE/OUTPT VISIT,EST,LEVL III OFFICE/OUTPT VISIT,EST,LEVL IV OFFICE/OUTPT VISIT,EST,LEVL V Demond Beach MD [address] [address] Phone: tel: fax: [facility], [address] [address] Phone: tel: fax: Referral ID Status Reason Start Date Expiration Date Visits Re quested Visits Authorized [id number] Closed 04/26/2022 05/26/2023 99 99 ONAL TELECOMMUNICATIONS SPECIALIST Reason for Visit * Reason Comments Nosebleeds Pt notes having 2-3 nose bleeds every week x the last month Encounter Details Date Type Department Care Team (Late st Contact Info) Description 04/26/2022 4:20 PM REGIONAL TELECOMMUNICATIONS SPECIALIST Office Visit [facility] [address] [place] [address] Chasidy Bob, POWER GENERATING PLANT OPERATOR- [address] [place] [address] Demond Beach MD [address] [facility] [address] [place] [address] Nosebleeds (Pt notes having 2-3 nose bleeds every week x the last month) Social History Tobacco Use Types Packs/Day Years Used Date Smoking Tobacco: Never Smokeless Tobacco: Never Tobacco Cessation:Counseling Given: Not Answered Alcohol Use Standard Drinks/Week Comments No 0 (1 standard drink = 0.6 oz pur e alcohol) AUDIT-C Answer Date Recorded Frequency of Alcohol Consumption Never 11/16/2018 Average Number of Drinks Not on file 019 Frequency of Binge Drinking Not on file 10/25 PHQ-2 Answer Date Recorded Patient Health Questionnaire-2 Score 0 04/26/2022 Sex and Gender Information Value Date Recorded Sex Assigned at Not on file 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 No / Unsure 04/26/2022 11:36 AM REGIONAL TELECOMMUNICATIONS SPECIALIST documented as of this encounter Last Filed Vital Signs Vital Sign Reading Time Taken Comments Blood Pressure 142/88 04/26/2022 4:36 PM REGIONAL TELECOMMUNICATIONS SPECIALIST Pulse 80 04/26/2022 4:23 PM REGIONAL TELECOMMUNICATIONS SPECIALIST Temperature 37.3 ??C (99.1 ??F) 04/26/2022 4:23 PM CS T Respiratory Rate 18 04/26/2022 4:23 PM REGIONAL TELECOMMUNICATIONS SPECIALIST Oxygen Saturation 98% 04/26/2022 4:23 PM REGIONAL TELECOMMUNICATIONS SPECIALIST Inhaled Oxygen Concentration - - Weight 106.1 kg (234 lb) 04/26/2022 4:23 PM REGIONAL TELECOMMUNICATIONS SPECIALIST Height 177.8 cm (5' 10 ) 04/26/2022 4:23 PM REGIONAL TELECOMMUNICATIONS SPECIALIST Body Mass Index 33.58 04/26/2022 4:23 PM REGIONAL TELECOMMUNICATIONS SPECIALIST documented in this encounter Patient Instructions * Patient Instructions* Demond Beach MD - 04/26/2022 4:20 PM REGIONAL TELECOMMUNICATIONS SPECIALIST Use saline nasal spray frequently and will refer to ENT ONAL TELECOMMUNICATIONS SPECIALIST documented in this encounter Progress Notes * Demond Beach MD - 04/26/2022 4:20 PM CST Chief Complaint: Nosebleeds (Pt notes having 2-3 nose bleeds every week x the last month) HPI: Roger Kathleen is a 31-year-old male here for complaints of having frequent nose bleeds the past month. Having 2-3 nose bleeds on right side. No bleeding elsewhere. Last one was two days ago. ROS: Review of Systems Constitutional: Negative for fever. HENT: Positive for nosebleeds. Negative for sore throat. Respiratory: Negative for cough. Cardiovascular: Negative for chest pain. Gastrointestinal: Negative for blood in stool. Genitourinary: Negative for hematuria. Neurological: Negative for headaches. Physical Exam Constitutional: General: He is not in acute distress. HENT: Nose: Comments: No current nose bleeding or obvious source seen in right nares. Mouth/Throat: Pharynx: Oropharynx is clear. Eyes: Conjunctiva/sclera: Conjunctivae normal. Cardiovascular: Rate and Rhythm: Normal rate and regular rhythm. Musculoskeletal: Cervical back: Neck supple. Lymphadenopathy: Cervical: No cervical adenopathy. Neurological: Mental Status: He is alert. No current outpatient medications on file. No current facility-administered medications for this visit. Past Medical History: Diagnosis Date ??? Asthma as a child ??? Epididymitis ??? Varicella history as a child Past Surgical History: Procedure Laterality Date ??? MYRINGOTOMY Social History Tobacco Use ??? Smoking status: Never ??? Smokeless tobacco: Never Substance Use Topics ??? Alcohol use: No Family History Problem Relation Name Age of Onset ??? Hypertension Father ??? Cancer Maternal Grandmother lung ??? Diabetes Neg Hx ??? Heart Attack Neg Hx ??? Stroke Neg Hx Vitals: 04/26/22 1623 04/26/22 1636 BP: (!) 162/102 (!) 142/88 BP Location: Left arm Patient Position: Sitting Cuff size: Adult Long Pulse: 80 Temp: 99.1 ??F (37.3 ??C) Weight: 106.1 kg (234 lb) Height: 5' 10 (1.778 m) Diagnoses/Impression: Epistaxis, recurrent (primary encounter diagnosis) Recommendations and Plan: Orders Placed This Encounter ??? Ambulatory referral to ENT Referral Priority: Urgent Referral Type: Consultation Requested Specialty: OTOLARYNGOLOGY Number of Visits Requested: 1 Expiration Date: 05/26/2023 Patient Instructions Use saline nasal spray frequently and will refer to ENT DEMOND BEACH MD Referring Provider: Self Referral PCP: DEMOND BEACH MD ONAL TELECOMMUNICATIONS SPECIALIST * Chasidy Ramirez NP - 04/26/2022 3:40 PM CST Reason for Visit: No chief complaint on file. History of Present Illness: Roger Kathleen is a 31-year-old male presenting today for xxx. ROS Medications: Current Outpatient Medications: ??? pantoprazole EC (PROTONIX) 20 MG tablet, Take 1 tablet (20 mg total) by mouth daily., Disp: 30 tablet, Rfl: 0 No Known Allergies There is no problem list on file for this patient. Past Medical History: Diagnosis Date ??? Asthma as a child ??? Epididymitis ??? Varicella history as a child Past Surgical History: Procedure Laterality Date ??? MYRINGOTOMY Social History Tobacco Use ??? Smoking status: Never ??? Smokeless tobacco: Never Vaping Use ??? Vaping Use: Never used Substance Use Topics ??? Alcohol use: No ??? Drug use: No Family History Problem Relation Name Age of Onset ??? Hypertension Father ??? Cancer Maternal Grandmother lung ??? Diabetes Neg Hx ??? Heart Attack Neg Hx ??? Stroke Neg Hx PHYSICAL EXAM There were no vitals filed for this visit. There is no height or weight on file to calculate BMI. No height and weight on file for this encounter. No results found for this visit on 04/26/22. Assessment and plan: There are no diagnoses linked to this encounter. The purpose and side effects of any new medication(s) prescribed today were discussed. Please read the pharmacy insert for any medication(s) prescribed and be aware of the potential side effects. If you are experiencing side effects, contact our office promptly. Plan and goals were discussed with the patient and all questions were answered to satisfaction. Reviewed and updated this visit by provider: hCasidy Ramirez NP PCP: KIERSTEN ARMIJO ONAL TELECOMMUNICATIONS SPECIALIST documented in this encounter Plan of Treatment Scheduled Referrals Name Type Priority Associated Diagnoses Orde r Schedule Ambulatory referral to ENT Referral Routine Epistaxis, recurrent Ordered: 04/26/2022 documented as of this encounter Visit Diagnoses Diagnosis Epistaxis, recurrent- Primary Epistaxis documented in this encounter Additional Health Concerns Assessment Noted Time PHQ-9 Depression Total Score: 0 11/02/19 21 10:15 AM CDT documented as of this encounter Care Teams Care Coordination Manager Relationship Specialty Start Date End Date Mildred Landers FNP-BC [address] [facility], [address] [place] [address] PCP - General NURSE PRACTITIONER 12/13/18 documented as of this encounter
--- OUTSIDE RECORDS SUMMARY | 2024-03-12 23:57 | XMS_ITS | Encounter Summary ---
Author Organization [facility] Address [address] [place] [address]. 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
--- OUTSIDE RECORDS SUMMARY | 2024-03-12 23:57 | XMS_ITS | Encounter Summary ---
Author Organization [facility] Address [address] [place] [address]. 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 Gender Identity Not on file Sexual Orientation Not on file documented as of this encounter Plan of Treatment Not on file documented as of this encounter Visit Diagnoses Not on filedocumented in this encounter Additional Health Concerns Assessment Noted Time PHQ-9 Depression Total Score: 0 11/02/19 21 10:15 AM CDT documented as of this encounter Care Teams Prefitter Doors Relationship Specialty Start Date End Date Mildred Landers [facility] [address] [facility], [address] [place] [address] PCP - General NURSE PRACTITIONER 12/13/18 documented as of this encounter
--- OUTSIDE RECORDS SUMMARY | 2024-03-12 23:57 | XMS_ITS | Encounter Summary ---
Author Organization [facility] Address [address] [place] [address]. 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 No / Unsure 11/01/2020 10:01 AM CDT documented as of this encounter Plan of Treatment Not on file documented as of this encounter Visit Diagnoses Not on filedocumented in this encounter Additional Health Concerns Assessment Noted Time PHQ-9 Depression Total Score: 0 11/02/19 21 10:15 AM CDT documented as of this encounter Care Teams Alterations Manager Relationship Specialty Start Date End Date Mildred Landers, [facility] CONSULT[facility]-BC [address] [facility], [address] [place] [address] PCP - General NURSE PRACTITIONER 12/13/18 documented as of this encounter
--- OUTSIDE RECORDS SUMMARY | 2024-03-12 23:57 | XMS_ITS | Encounter Summary ---
Author Organization [facility] Address [address] [place] [address]. 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 Gender Identity Not on file Sexual Orientation Not on file documented as of this encounter Plan of Treatment Not on file documented as of this encounter Visit Diagnoses Not on filedocumented in this encounter Additional Health Concerns Assessment Noted Time PHQ-9 Depression Total Score: 0 11/02/19 21 10:15 AM CDT documented as of this encounter Care Teams Budget Examiner Relationship Specialty Start Date End Date Mildred Landers, [facility] [address] [facility], [address] [place] [address] PCP - General NURSE PRACTITIONER 12/13/18 documented as of this encounter
--- OUTSIDE RECORDS SUMMARY | 2024-03-12 23:57 | XMS_ITS | Encounter Summary ---
Author Organization [facility] Address [address] [place] [address]. [place], [place] [address] [place] [address] Care Team Providers Care Respiratory Therapy Director Name Role Phone [facility] Primary Care Provider + Reason for Referral * Consultation (Routine) - Closed Specialty Diagnoses / Procedures Referred By Enrique murillo Referred To Contact UROLOGY Diagnoses Encounter for vasectomy counseling Procedures OFFICE/OUTPT VISIT,NEW,LEVL III OFFICE/OUTPT VISIT,NEW,LEVL IV OFFICE/OUTPT VISIT,NEW,LEVL V OFFICE/OUTPT VISIT,EST,LEVL III OFFICE/OUTPT VISIT,EST,LEVL IV OFFICE/OUTPT VISIT,EST,LEVL V Mildred Landers FNP-BC [facility] [address] [address] Phone: tel: fax: Kain Stone MD [address] [place] [address] Phone: tel: fax: Referral ID Status Reason Start Date Expiration Date V isits Requested Visits Authorized [id number] Closed Specialty Services 10/10/2022 11/10/2023 99 99 Reason for Visit * Reason Comments Follow Up Vasectomy referral Encounter Details Date Type Department Care Team (Late st Contact Info) Description 10/10/2022 1:00 PM CDT Telemedicine [facility] [address] [place] [address] Mildred Landers, [facility] [address] [facility], [address] [place] [address] Follow Up (Vasectomy referral ) Social History Tobacco Use Types Packs/Day [...] on file 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 Reason for Visit: Follow Up (Vasectomy referral ) History of Present Illness: I introduced and identified myself, received verbal consent?? from the patient to proceed with thisvideo visit and made the patient aware that the same confidentiality and senior vice president and chief information officer practices apply. The patient joined the video visit from Home. I completed the virtual visit from Office.The following clinical staff helped with this visit CHAYO: Vi. Total Time Spent in Minutes: 30. Roger participates in this virtual video visit with plans to seek a vasectomy for sterilization. Does not want additional children. Denies any concerns. Has never had anesthesia. Pt denies chest pain, SOB, palpitations, or peripheral edema. No recent infection Denies bleeding or clotting disorders. ROS: Review of Systems Constitutional: Negative. Negative [...] status: Tobacco Use ??? Smoking status: Never ??? [...] Neg Hx (Not Specified) Physical Exam Constitutional: General: He is not in acute distress. Appearance: He is not diaphoretic. HENT: Head: Normocephalic and atraumatic. Eyes: Conjunctiva/sclera: Conjunctivae normal. Neck: Trachea: No tracheal deviation. Skin: Coloration: Skin is not pale. Psychiatric: Mood and Affect: Mood and affect normal. Mood is not anxious or depressed. Behavior: Behavior is not agitated. Thought Content: Thought content does not include homicidal or suicidal ideation. Thought content does not include homicidal or suicidal plan. Judgment: Judgment normal. Filed Vitals: 10/10/22 1259 Height: 5' 10 (1.778 m) Body mass index is 33.58 kg/m??. PHQ-9: 04/26/2022 4:23 PM 10/10/2022 1:01 PM PHQ2/PHQ 9 DEPRESSION SCREEN QUESTIONAIRE Little interest or pleasure in doing things Not at all Not at all Feeling down, depressed, or hopeless Not at all Not at all Patient Health Questionnaire-2 Score 0 0 No data to display Assessment Encounter Diagnose(s) ICD-10-CM ICD-9-CM SNOMED CT(R) 1. Encounter for vasectomy counseling Z30.09 V25.09 PATIENT ENCOUNTER STATUS Ambulatory referral toUrology (OTHER) Recommendations and Plan: 1. Encounter for vasectomy counseling - Ambulatory referral to Urology (OTHER) Referred pt to urology for a consultation for vasectomy. Pt has not specific provider in mind for relief Discussed possible referral to provider at [facility]. Pt is agreeable. KIERSTEN BONNER documented in this encounter Plan of Treatment Scheduled Referrals Name Type Priority Associated Diagnoses Orde r Schedule Ambulatory referral to Urology (OTHER) Referral Routine Encounter for vasectomy counseling Ordered: 10/10/2022 documented as of this encounter Visit Diagnoses Diagnosis Encounter for vasectomy counseling- Primary Other general counseling and advice for contraceptive management documented in this encounter Additional Health Concerns Assessment Noted Time PHQ-9 Depression Total Score: 0 11/02/19 21 10:15 AM CDT documented as of this encounter Care Teams Respiratory Therapy Director Relationship Specialty Start Date End Date Mildred Landers FNP-BC [address] [facility], [address] [place] [address] PCP - General NURSE PRACTITIONER 12/13/18 documented as of this encounter
--- OUTSIDE RECORDS SUMMARY | 2024-03-12 23:57 | XMS_ITS | Encounter Summary ---
Author Organization [facility] Address [address] [place] [address]. [place] [address] [place] [address] Care Team Providers Care Squeegee Operator Name Role Phone Cornelius Landers [facility] Primary Care Provider + Reason for Visit * Reason Comments Consult New patient lipoma o n torso * Consultation/Treatment (Routine) - Closed Specialty Diagnoses / Procedures Referred By Enrique murillo Referred To Contact GENERAL SURGERY / SURGERY Diagnoses Lipoma of torso Procedures OFFICE/OUTPT VISIT,NEW,LEVL III OFFICE/OUTPT VISIT,NEW,LEVL IV OFFICE/OUTPT VISIT,NEW,LEVL V OFFICE/OUTPT VISIT,EST,LEVL III OFFICE/OUTPT VISIT,EST,LEVL IV OFFICE/OUTPT VISIT,EST,LEVL V Cornelius Landers, [facility] [address] [place] [address] Phone: tel: fax: Hector Nava MD Phone: tel: fax: Referral ID Status Reason Start Date Expiration Date Visits Re quested Visits Authorized [id number] Closed 12/26/2021 01/27/2023 99 99 Encounter Details Date Type Department Care Team (Late st Contact Info) Description 01/03/2022 11:20 AM CDT Office Visit [facility] General Surgery - [address], [address] [place] [address] [place] [address] [place] [address] Consult (New patient lipoma on torso) Social History Tobacco Use Types Packs/Day Years Used Date Smoking Tobacco: Never Smokeless Tobacco: Never Tobacco Cessation:Counseling Given: No Alcohol Use Standard Drinks/Week Comments No 0 [...] on file 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 No / Unsure 01/03/2022 11:14 AM CDT documented as of this encounter Last Filed Vital Signs Vital Sign Reading Time Taken Comments Blood Pressure 123/75 01/03/2022 11:21 AM CDT Pulse 53 01/03/2022 11:21 AM CDT Temperature 36.9 ??C (98.4 ??F) 01/03/2022 11:21 AM C DT Respiratory Rate 16 01/03/2022 11:21 AM CDT Oxygen Saturation 100% 01/03/2022 11:21 AM CDT Inhaled Oxygen Concentration - - Weight 103.2 kg (227 lb 8 oz) 01/03/2022 11:21 A M CDT Height 177.8 cm (5' 10 ) 01/03/2022 11:21 AM CDT Body Mass Index 32.64 01/03/2022 11:21 AM CDT documented in this encounter Progress Notes * Hector Boyd MD - 01/03/2022 11:20 AM CDT Images from the original note were not included. HPI: Roger Kathleen is a 31-year-old male who is being seen today in consultation at requestof [facility]- for evaluation of a soft tissue mass of the anterior chest wall. The patient who is otherwise healthy stated that he noticed this lump for about 7 to 8 years. Never causing problem however recently he started to experience some pressure feeling in the area. The patient denies bleeding, drainage, significant change in size, shape or color. There is no problem list on file for this patient. No Known Allergies Outpatient Medications Marked as Taking for the 01/03/22 encounter (Office Visit) with Hector Boyd MD Medication Sig Dispense Refill ??? pantoprazole EC (PROTONIX) 20 MG tablet Take 1 tablet (20 mg total) by mouth daily. 30 tablet 0 Past Medical History: Diagnosis Date ??? Asthma as a child ??? Epididymitis ??? Varicella history as a child Past Medical History: Diagnosis Date ??? Asthma as a child ??? Epididymitis ??? Varicella history as a child Family History Problem Relation Name Age of Onset ??? Hypertension Father ??? Cancer Maternal Grandmother lung ??? Diabetes Neg Hx ??? Heart Attack Neg Hx ??? Stroke Neg Hx Social History Tobacco Use ??? Smoking status: Never Smoker ??? Smokeless tobacco: Never Used Vaping Use ??? Vaping Use: Never used Substance Use Topics ??? Alcohol use: No ??? Drug use: No REVIEW OF SYSTEMS For pertinent positives see HPI. Constitutional: Negative for chills and fever. HENT: Negative. Eyes: Negative. Respiratory: Negative for shortness of breath and wheezing. Cardiovascular: Negative. Negative for chest pain. Gastrointestinal: Negative. Endocrine: Negative. Genitourinary: Negative. Musculoskeletal: Negative. Skin: Negative for rash. Lump anterior chest wall allergic/Immunologic: Negative. Neurological: Negative for dizziness and light-headedness. Hematological: Negative. Psychiatric/Behavioral: Negative. I have reviewed and confirmed my staff's documentation of the patient's past medical, surgical, family and social history.. Vitals: 01/03/22 1121 Patient Position: Sitting BP Location: Right arm Cuff size: Adult Large BP: 123/75 Pulse: 53 Body mass index is 32.64 kg/m??. PHYSICAL EXAM: General appearance: alert and oriented X 3, no distress, cooperative Head: Normocephalic, without obvious abnormality, atraumatic Eyes: conjunctivae/corneas clear. Pupils equal, round, reactive to light. Throat: Lips, mucosa, and tongue normal. Neck: supple, symmetrical, trachea midline, no adenopathy, thyroid: not enlarged, symmetric, no tenderness/mass/nodules Lungs: clear to auscultation bilaterally, normal respiratory effort Heart: regular rate and rhythm, S1, S2 normal, no murmur. Abdomen: soft, non-tender. Bowel sounds normal. No masses, no organomegaly; no hernias Rectal: Deferred Extremities: extremities normal, atraumatic, no cyanosis or edema. Skin: No ecchymosis, petechiae, or rashes. Lump of the anterior chest wall Neuro: Nonfocal. Musculoskeletal: No joint tenderness or effusion. No spine tenderness. Psychiatric: The patient has a normal mood and affect. His behavior is normal Physical Exam Chest: Comments: 2 x 2 cm mobile subcutaneous mass. Examination is consistent with lipoma. Skin is normal LABS: [I reviewed the recent laboratories and pertinent values were noted.] CBC: No results for input(s): WBC, RBC, HGB, MCV, MCH, RDW, PLT, MPV, ABSTNEU, LYMC, MONOC, EOSC, BASOC,IGC, NRBCC in the last 168 hours. Lactic Acid: No results for input(s): LACTICACID in the last 72 hours. CMP: No results for input(s): NA, K, CL, CO2, GLU, BUN, CR, CA, TBIL, TP, ALB, AGAP, OSMC, GFRNON, GFR, GFRNT in the last 168 hours. Liver Profile: No results for input(s): ALKP, AST, ALT, GGT in the last 168 hours. PT/PTT: No results for input(s): PROTIME, INR, PTT in the last 168 hours. Urine Studies: No results for input(s): COLOR, TRANSPARENCY, USPGRAV, UPH, UGLU, UKETONES, UBILIRUBIN, BLOOD, UROBILI, ULEU, URBC, UWBC, BACTERIA in the last 168 hours. Invalid input(s): OPROTEIN, NITRATES IMAGING: [I reviewed the digital images of the patient's imaging studies] No results found. Assessment and Plan: 31-year-old male who is being seen today in consultation at request of [facility] for evaluation of a soft tissue mass of the anterior chest wall. The patient who is otherwisehealthy stated that he noticed this lump for about 7 to 8 years. Never causing problem however recently he started to experience some pressure feeling in the area. The patient denies bleeding, drainage, significant change in size, shape or color. As per history and examination 2 x 2 cm mobile subcutaneous mass which is consistent with lipoma. The skin over it is normal. I explained the finding tothe patient I offered excision under local anesthesia in the office. The patient is agreeable. The procedure, risks and possible complication explained to the patient in details. The patient understands that those possible complications include but not limited to bleeding, infection, wound dehiscence, drainage, recurrence, incomplete excision and need for further intervention, acute or chronic pain, injury to surrounding and neurovascular structure with resulting pain, numbness, tingling or weakness, hypertrophic or keloidal scars and deformity. The patient was given time to ask questions and those were answered satisfactorily. The patient expressed understanding and agreement to proceed. The patient will sign the consent in the day of the procedure. I spent 30 minutes today reviewing the patient's medical record, obtaining history, performing an exam, ordering medications, tests, and/or procedures, documenting in the medical record, referring and/or communicating with other health care providers, counseling and educating the patient/family/caregiver, reviewing and communicating test results, and coordination of care. Again, thank you for allowing me to provide consultative services and to participate in the care ofRoger Kathleen. This dictation was done utilizing a voice recognition system. Attempts have been made to correct errors. However, there may be uncorrected grammatical, spelling and recognition errors present. HECTOR BOYD MD Referring Provider: Leesa PCP: KIERSTEN ARMIJO documented in this encounter Plan of Treatment Not on file documented as of this encounter Visit Diagnoses Diagnosis Soft tissue mass- Primary Disorders of soft tissue, unspecified documented in this encounter Additional Health Concerns Assessment Noted Time PHQ-9 Depression Total Score: 0 11/02/19 21 10:15 AM CDT documented as of this encounter Care Teams Squeegee Operator Relationship Specialty Start Date End Date Cornelius Landers FNP-BC [address], [address] [place] [address] PCP - General NURSE PRACTITIONER 12/13/18 documented as of this encounter
--- OUTSIDE RECORDS SUMMARY | 2024-03-12 23:57 | XMS_ITS | Encounter Summary ---
Author Organization [facility] Address [address] [place] [address]. 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
--- OUTSIDE RECORDS SUMMARY | 2024-03-12 23:57 | XMS_ITS | Encounter Summary ---
Author Organization [facility] Address [address] [place] [address]. [place] [address] [place] [address] Care Team Providers Care Test Conductor Name Role Phone Mildred Landers [facility] Primary Care Provider + Reason for Referral * Imaging (Emergency) - Closed Specialty Diagnoses / Procedures Referred By Enrique murillo Referred To Contact RADIOLOGY Procedures CT ABD+PEL W IV CON ONLY Fareed Alicia MD [address] [place] [id number] Phone: tel: fax: Referral ID Status Reason Start Date Expiration Date Visits Re quested Visits Authorized [id number] Closed 12/23/2021 12/23/2022 1 1 Reason for Visit * Reason Comments Abdominal Pain Encounter Details Date Type Department Care Team (Late st Contact Info) Description 12/23/2021 5:48 PM CDT - 12/23/2021 7:55 PM CDT Emergency [facility] Emergency Room [address] [place] [address] Fareed Alicia MD [address] [place] [id number] Abdominal Pain Discharge Disposition: Home or Self Care (Routine [...] on file 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 No / Unsure 12/23/2021 5:37 PM CDT documented as of this encounter Last Filed Vital Signs Vital Sign Reading Time Taken Comments Blood Pressure 140/92 12/23/2021 7:50 PM CDT Pulse 73 12/23/2021 5:58 PM CDT Temperature 36.6 ??C (97.9 ??F) 12/23/2021 5:58 PM CD T Respiratory Rate 16 12/23/2021 5:58 PM CDT Oxygen Saturation 98% 12/23/2021 7:50 PM CDT Inhaled Oxygen Concentration - - Weight 97.5 kg (215 lb) 12/23/2021 5:58 PM CDT Height 177.8 cm (5' 10 ) 12/23/2021 5:58 PM CDT Body Mass Index 30.85 12/23/2021 5:58 PM CDT documented in this encounter Discharge Instructions * Discharge Instructions* Christopher Douglas MD - 12/23/2021 7:45 PM CDT Return for any concerns. Your blood pressure was elevated on today's visit. This needs to be followed up with as untreated hypertension can lead to or permanent disability. * Attachments The following attachments cannot be sent through Care Everywhere. * Abdominal Pain, Adult ED (Maldivian) documented in this encounter Medications at Time of Discharge gabapentin 100 MG capsuleIndicatio ns:Shingles 1 tab 100 mg Q HS x 3 days, Then increase to BID x three days, then to TID. 30 capsule 01/17/2021 12/26/2021 pantoprazole EC (PROTONIX) 20 MG tablet Take 1 tablet (20 mg total) by mouth daily. 30 tablet 12/23/2021 12/26/2021 documented as of this encounter ED Notes * Christopher Douglas MD - 12/23/2021 7:45 PM CDT Emergency Department Assumed Care Note Patient signed out to me by Dr Alicia. Briefly, Roger Kathleen is a 31-year-old male is being evaluated for abd pain Vitals: 12/23/21 1900 BP: (!) 150/93 Pulse: Resp: Temp: SpO2: 98% Progress notes: Pt from Dr. Alicia. CT negative. Will give trial of pantoprazole. Plan outpt management. Clinical impression: SNOMED CT(R) 1. Pain of upper abdomen UPPER ABDOMINAL PAIN 2. Elevated blood pressure reading ELEVATED BLOOD PRESSURE Disposition: Discharge CHRISTOPHER DOUGLAS MD 12/23/2021 Christopher Douglas MD 12/23/211945 * Fareed Alicia MD - 12/23/2021 6:23 PM CDT [facility] Emergency Department Note Chief Complaint Chief Complaint Patient presents with ??? Abdominal Pain History of Present Illness 31-year-old white male presents to the emergency department with complaint of abdominal pain since Saturday, December 18, 2021. Patient complains of intermittent abdominal pain diffuse. No nausea vomiting diarrhea constipation. No fevers or chills. No chest pain palpitation. No shortness of breath or cough. No dysuria increased rinks urination. No difference with food. Patient primary care provider is Krystal Landers Patient has no known drug allergies. Takes no medication. Said no surgeries. Patient does not smoke drink alcohol or do drugs. Patient is lives with his for 6 years. Patient works for [employer]. Family history of hypertension. Patient is COVID immunized. Patient is under significant stress at work. Medical History ALLERGIES: No Known Allergies MEDICATIONS: Prior to Admission medications Medication Sig Start Date End Date Taking? Authorizing Provider gabapentin 100 MG capsule 1 tab 100 mg Q HS x 3 days, Then increase to BID x three days, then to TID. 01/17/21 Mildred Landers, [facility] PAST MEDICAL HISTORY: Past Medical History: Diagnosis Date ??? Asthma as a child ??? Epididymitis ??? Varicella history as a child PAST SURGICAL HISTORY: Past Surgical History: Procedure Laterality Date ??? MYRINGOTOMY FAMILY HISTORY: Family History Problem Relation Name Age of Onset ??? Hypertension Father ??? Cancer Maternal Grandmother lung ??? Diabetes Neg Hx ??? Heart Attack Neg Hx ??? Stroke Neg Hx SOCIAL HISTORY: Social History Tobacco Use ??? Smoking status: Never Smoker ??? Smokeless tobacco: Never Used Vaping Use ??? Vaping Use: Never used Substance Use Topics ??? Alcohol use: No ??? Drug use: No Review of Systems Review of Systems Constitutional: Negative for chills and fever. HENT: Negative for congestion, rhinorrhea and sore throat. Eyes: Negative for photophobia. Respiratory: Negative for cough, shortness of breath and wheezing. Cardiovascular: Negative for chest pain, palpitations and leg swelling. Gastrointestinal: Positive for abdominal pain. Negative for constipation, diarrhea, nausea and vomiting. Endocrine: Negative for polydipsia and polyuria. Genitourinary: Negative for dysuria and frequency. Musculoskeletal: Negative for back pain, neck pain and neck stiffness. Skin: Negative for pallor and rash. Allergic/Immunologic: Negative for immunocompromised state. Neurological: Negative for syncope, light-headedness, numbness and headaches. Hematological: Does not bruise/bleed easily. Psychiatric/Behavioral: Negative for suicidal ideas. Physical Exam Filed Vitals: 12/23/21 1758 BP: (!) 139/93 Pulse: 73 Resp: 16 Temp: 97.9 ??F (36.6 ??C) TempSrc: Temporal SpO2: 98% Weight: 97.5 kg (215 lb) Height: 5' 10 (1.778 m) Physical Exam Vitals and nursing note reviewed. Constitutional: General: He is not in acute distress. Appearance: He is well-developed. HENT: Head: Normocephalic and atraumatic. Right Ear: External ear normal. Left Ear: External ear normal. Nose: Nose normal. Mouth/Throat: Mouth: Mucous membranes are moist. Eyes: General: No scleral icterus. Conjunctiva/sclera: Conjunctivae normal. Pupils: Pupils are equal, round, and reactive to light. Neck: Vascular: No JVD. Cardiovascular: Rate and Rhythm: Normal rate and regular rhythm. Heart sounds: Normal heart sounds. No murmur heard. No friction rub. No gallop. Pulmonary: Effort: Pulmonary effort is normal. No respiratory distress. Breath sounds: Normal breath sounds. No stridor. No wheezing or rales. Chest: Chest wall: No tenderness. Abdominal: General: Bowel sounds are normal. There is no distension. Palpations: Abdomen is soft. There is no mass. Tenderness: There is abdominal tenderness. There is no guarding or rebound. Comments: Minimal tenderness diffusely. No rebound no guarding Musculoskeletal: General: No deformity. Normal range of motion. Cervical back: Normal range of motion and neck supple. Skin: General: Skin is warm and dry. Findings: No rash. Neurological: Mental Status: He is alert and oriented to person, place, and time. Psychiatric: Behavior: Behavior normal. Thought Content: Thought content normal. Judgment: Judgment normal. Diagnostic Studies / Procedures ELECTROCARDIOGRAMS: No results found for this visit on 12/23/21. LABORATORY STUDIES: Results for orders placed or performed during the hospital encounter of 12/23/21 CBC W/DIFF AUTOMATED Result Value Ref Range WBC 9.6 4.4 - 11.0 x10'3/uL RBC 5.35 4.50 - 5.90 x10'6/uL HGB 15.6 14.0 - 17.5 G/DL HCT 45.6 41.5 - 50.4 % MCV 85.2 80.0 - 96.0 FL MCH 29.2 26.5 - 31.4 PG MCHC 34.2 31.9 - 34.8 G/DL RDW 12.8 12.3 - 14.3 % PLT 465 (H) 151 - 353 x10'3/uL MPV 9.7 9.7 - 11.9 FL RBC MORPHOLOGY NORMAL PLT MORPH. NORMAL WBC MORPHOLOGY NORMAL LYMPHOCYTES 40.1 15.8 - 45.0 % NEUTROPHILS 48.5 42.1 - 71.9 % MONOCYTES 8.5 5.7 - 12.5 % EOSINOPHILS 1.9 0.0 - 5.6 % BASOPHILS 0.5 0.0 - 1.3 % ABS. NEUTROPHILS 4.65 1.40 - 6.00 x10'3/uL IMMATURE GRANS 0.5 0.0 - 0.5 % ABS. LYMPHOCYTES 3.84 0.80 - 4.70 x10'3/uL COMPREHENSIVE METABOLIC PANEL Result Value Ref Range GLUCOSE 101 (H) 70 - 99 MG/DL BUN 18 7 - 18 MG/DL CREATININE S/P/B 1.24 0.7 - 1.3 MG/DL SODIUM 138 136 - 145 MMOL/L POTASSIUM 4.1 3.5 - 5.1 MMOL/L CHLORIDE S/P/B 102 100 - 108 MMOL/L CO2 26.7 21 - 32 MMOL/L CALCIUM 8.9 8.5 - 10.1 MG/DL BILIRUBIN TOTAL S/P/B 0.3 0.2 - 1.2 MG/DL TOTAL PROTEIN S/P/B 7.8 6.4 - 8.2 G/DL ALBUMIN S/P/B 4.4 3.4 - 5.0 G/DL AST 16 15 - 37 U/L ALT 33 16 - 60 U/L ALKALINE PHOSPHATASE S/P/B 65 50 - 136 U/L ANION GAP 9.3 5 - 15 MMOL/L BUN CREATININE RATIO 14.5 6 - 26 A/G RATIO 1.3 1.0 - 2.0 RATIO GFR ESTIMATE 80 (L) >90 ML/MIN/1.73 M2 LIPASE Result Value Ref Range LIPASE 186 73 - 393 UNITS/L IMAGING STUDIES CT ABD+PEL W IV CON ONLY (Results Pending) ED Course / Medical Decision Making MDM Number of Diagnoses or Management Options Amount and/or Complexity of Data Reviewed Clinical lab tests: ordered Tests in the radiology section of CPT??: ordered Risk of Complications, Morbidity, and/or Mortality Presenting problems: moderate Diagnostic procedures: moderate Management options: moderate ED Course as of 12/23/211857Dec 23, 20211854 Patient care turned over to Dr. Douglas. Awaiting laboratory and CT results [CA] ED Course User Index [CA] Fareed Alicia MD Medications lactated ringers bolus infusion 1,000 mL (1,000 mLs Intravenous New Bag 12/23/211853) ondansetron (ZOFRAN) injection 4 mg (4 mg Intravenous Not Given 12/23/211853) Clinical Impression None Current Discharge Medication List Disposition: Data Unavailable Voice recognition software used. Follow-Up: No follow-up provider specified. Fareed Alicia MD 12/23/2021 Fareed Alicia MD 12/23/211857 * Lore Anders RN - 12/23/2021 5:56 PM CDT Pt presents to ED via self with C/O abdominal pain since Sunday. During the day he says it hurts mid epigastric area and it gets worse @ HS and pain is above the Naval area. Pain at this time is 2/10. Denies any chest pain/pressure or any radiating pain. States it doesn't matter what he eats it doesn't make a difference. Admits to being under a lot of stress at work and didn't know if that could have something to do with it or not. Denies any urinary problems documented in this encounter Plan of Treatment Not on file documented as of this encounter Procedures Procedure Name Priority Date/Time Associated Diagnosis Comments CT ABD+PEL W CON STAT 12/23/2021 7:27 PM CDT URINALYSIS, AUTO, COMPLETE STAT 12/23/2021 6:51 PM CDT COMPREHENSIVE METABOLIC PANEL STAT 12/23/2021 6:17 PM CDT CBC W/DIFF AUTOMATED STAT 12/23/2021 6:17 PM CDT LIPASE STAT 12/23/2021 6:17 PM CDT documented in this encounter Results * CT ABD+PEL W IV CON ONLY (12/23/2021 7:27 PM CDT) Anatomical Region Laterality Modality Abdomen Computed Tomogra phy 12/24/2021 12:0 6 AM CDT Impressions 12/24/2021 12:13 AM CDT IMPRESSION: No apparent etiology for patient's findings of epigastric and lower abdominal pain. Visualized lung bases appear clear of active disease. Tiny umbilical hernia containing fat only. No free intraperitoneal air or free pelvic fluid identified. Partially contracted gallbladder without gallstones. Normal appendix. No apparent hepatic, splenic, pancreatic, adrenal, renal, or pelvic mass lesions. No apparent obstructive uropathy. Preliminary teleradiology report provided. No apparent bowel obstruction. No abdominal aortic aneurysm. Unremarkable urinary bladder. Lumbar neural arches all appear intact. Ordered By: FAREED ALICIA Interpreted By: Daniel Knowles, 12/24/2021 12:06 AM Narrative 12/24/2021 12:13 AM CDT IMAGING STUDIES: CT ABD+PEL WITH IV CONTRAST LATERAL CONTRAST WITH SAGITTAL AND CORONAL RECONSTRUCTION ? DATE: 12/23/2021 7:13 PM HISTORY: Mid epigastric pain and lower abdominal pain for the past 5 days. COMPARISON: None. CONTRAST: 90 mL Isovue-370 IV. Radiation dose reduction technique was utilized. Procedure Note Daniel Knowles MD - 12/24/2021 IMAGING STUDIES: CT ABD+PEL WITH IV CONTRAST LATERAL CONTRAST WITHSAGITTAL AND CORONAL RECONSTRUCTION DATE: 12/23/2021 7:13 PM HISTORY: Mid epigastric pain and lower abdominal pain for the past 5days. COMPARISON: None. CONTRAST: 90 mL Isovue-370 IV. Radiation dose reduction technique was utilized. IMPRESSION: No apparent etiology for patient's findings of epigastric andlower abdominal pain. Visualized lung bases appear clear of active disease. Tiny umbilical hernia containing fat only. No free intraperitoneal air orfree pelvic fluid identified. Partially contracted gallbladder withoutgallstones. Normal appendix. No apparent hepatic, splenic, pancreatic,adrenal, renal, or pelvic mass lesions. No apparent obstructive uropathy.Preliminary teleradiology report provided. No apparent bowel obstruction. No abdominal aortic aneurysm. Unremarkableurinary bladder. Lumbar neural arches all appear intact. Ordered By: FAREED ALICIA Interpreted By: Daniel Knowles, 12/24/2021 12:06 AM us Fareed Alicia MD CT Final Result * URINALYSIS, AUTO, COMPLETE (12/23/2021 6:51 PM CDT) COLOR (U) YELLOW 12/23/2021 7:13 PM CDT [facility] TRANSPARENCY CLEAR 12/23/2021 7:13 PM CDT [facility] SPECIFIC GRAVITY (U) 1.025 1.000 - 1.030 12/23/2021 7:13 PM CDT [facility] U PH 5.5 5.0 - 9.0 12/23/2021 7:13 PM CDT [facility] LEUKOCYTES (U) NEGATIVE NEGATIVE 12/23/2021 7:13 PM CDT [facility] NITRITES NEGATIVE NEGATIVE 12/23/2021 7:13 PM CDT [facility] PROTEIN (U) NEGATIVE NEGATIVE 12/23/2021 7:13 PM CDT [facility] URINE GLUCOSE NEGATIVE NEGATIVE 12/23/2021 7:13 PM CDT [facility] KETONES MG/DL (U) NEGATIVE NEGATIVE 12/23/2021 7:13 PM CDT [facility] BILIRUBIN (U) NEGATIVE NEGATIVE 12/23/2021 7:13 PM CDT [facility] BLOOD (U) NEGATIVE NEGATIVE 12/23/2021 7:13 PM CDT [facility] WBC/HPF NONE SEEN 0 - 5 /HPF 12/23/2021 7:13 PM CDT [facility] RBC/HPF NONE SEEN 0 - 5 /HPF 12/23/2021 7:13 PM CDT [facility] EPI/HPF RARE /HPF 12/23/2021 7:13 PM CDT [facility] CULTURE & SENSITIVITY INDICATED? CULTURE IS NOT INDICATED 12/23/2021 7:13 PM CDT [facility] URINE SPECIMEN OBTAINED BY CLEAN CATCH PROCEDURE / Unknown 12/23/2021 6:51 PM CDT us Fareed Alicia MD URINE ORDERABLES Final Result [facility] [address] [place] [address], [place] [phone] * LIPASE (12/23/2021 6:17 PM CDT) LIPASE 186 73 - 393 UNITS/L 12/23/2021 6:54 PM CDT [facility] 12/23/2021 6:17 PM CDT us Fareed Alicia MD LABORATORY Final Result Performing Organization Address City/[facility]/ZIP Co de Phone Number [facility] [address] [place] [address], [place] [phone] * (ABNORMAL) COMPREHENSIVE METABOLIC PANEL (12/23/2021 6:17 PM CDT) GLUCOSE 101(H) 70 - 99 MG/DL 12/23/2021 6:54 PM CDT [facility] BUN 18 7 - 18 MG/DL 12/23/2021 6:54 PM CDT [facility] CREATININE S/P/B 1.24 0.7 - 1.3 MG/DL 12/23/2021 6:54 PM CDT [facility] SODIUM S/P/B 138 136 - 145 MMOL/L 12/23/2021 6:54 PM CDT [facility] POTASSIUM S/P/B 4.1 3.5 - 5.1 MMOL/L 12/23/2021 6:54 PM [facility] CHLORIDE S/P/B 102 100 - 108 MMOL/L 12/23/2021 6:54 PM [facility] CO2 26.7 21 - 32 MMOL/L 12/23/2021 6:54 PM T [facility] CALCIUM S/P/B 8.9 8.5 - 10.1 MG/DL 12/23/2021 6:54 PM [facility] BILIRUBIN TOTAL S/P/B 0.3 0.2 - 1.2 MG/DL 12/23/2021 6:54 PM [facility] TOTAL PROTEIN S/P/B 7.8 6.4 - 8.2 G/DL 12/23/2021 6:54 PM [facility] ALBUMIN S/P/B 4.4 3.4 - 5.0 G/DL 12/23/2021 6:54 PM [facility] AST 16 15 - 37 U/L 12/23/2021 6:54 PM [facility] ALT 33 16 - 60 U/L 12/23/2021 6:54 PM [facility] ALKALINE PHOSPHATASE S/P/B 65 50 - 136 U/L 12/23/2021 6:54 PM [facility] ANION GAP 9.3 5 - 15 MMOL/L 12/23/2021 6:54 PM [facility] BUN CREATININE RATIO 14.5 6 - 26 12/23/2021 6:54 PM [facility] A/G RATIO 1.3 1.0 - 2.0 RATIO 12/23/2021 6:54 PM [facility] GFR ESTIMATE 80(L) >90 ML/MIN/1.7 3 M2 12/23/2021 6:54 PM CDT [facility] Comment: NOTE: eGFR is not calculated for patients <18 years of age. This is an estimated GFR calculation using the new CKD EPI creatinine equation without race and so does not require a correction factor for race. This estimated GFR should not be used for calculating drug doses. 12/23/2021 6:17 PM CDT Fareed Alicia MD LABORATORY Final Result [facility] [address] [place] [address], * (ABNORMAL) CBC W/DIFF AUTOMATED (12/23/2021 6:17 PM CDT) WBC 9.6 4.4 - 11.0 x10'3/uL 12/23/2021 6:40 PM CDT [facility] RBC 5.35 4.50 - 5.90 x10'6/uL 12/23/2021 6:40 PM CDT [facility] HGB 15.6 14.0 - 17.5 G/DL 12/23/2021 6:40 PM CDT [facility] HCT 45.6 41.5 - 50.4 % 12/23/2021 6:40 PM CDT [facility] MCV 85.2 80.0 - 96.0 FL 12/23/2021 6:40 PM CDT [facility] MCH 29.2 26.5 - 31.4 PG 12/23/2021 6:40 PM CDT [facility] MCHC 34.2 31.9 - 34.8 G/DL 12/23/2021 6:40 PM CDT [facility] RDW 12.8 12.3 - 14.3 % 12/23/2021 6:40 PM CDT [facility] PLT 465(H) 151 - 353 x10'3/uL 12/23/2021 6:40 PM T [facility] MPV 9.7 9.7 - 11.9 FL 12/23/2021 6:40 PM T [facility] RBC MORPHOLOGY NORMAL 12/23/2021 6:40 PM T [facility] PLT MORPH. NORMAL 12/23/2021 6:40 PM CDT [facility] WBC MORPHOLOGY NORMAL 12/23/2021 6:40 PM T [facility] LYMPHOCYTES % 40.1 15.8 - 45.0 % 12/23/2021 6:40 PM T [facility] NEUTROPHILS % 48.5 42.1 - 71.9 % 12/23/2021 6:40 PM T [facility] MONOCYTES % 8.5 5.7 - 12.5 % 12/23/2021 6:40 PM T [facility] EOSINOPHILS 1.9 0.0 - 5.6 % 12/23/2021 6:40 PM T [facility] BASOPHILS 0.5 0.0 - 1.3 % 12/23/2021 6:40 PM T [facility] ABS. NEUTROPHILS 4.65 1.40 - 6.00 x10'3/uL 12/23/2021 6:40 PM T [facility] IMMATURE GRANS % 0.5 0.0 - 0.5 % 12/23/2021 6:40 PM T [facility] ABS. LYMPHOCYTES 3.84 0.80 - 4.70 x10'3/uL 12/23/2021 6:40 PM T [facility] 12/23/2021 6:17 PM CDT Fareed Alicia MD LABORATORY Final Result [facility] [address] [place] [address], [place] [phone] documented in this encounter Visit Diagnoses Diagnosis Pain of upper abdomen- Primary Abdominal pain, other specified site Elevated blood pressure reading Elevated blood pressure reading without diagnosis of hypertension documented in this encounter Administered Medications Inactive Administered Medications - up to 3 most recent administrations Medication Order MAR Action Action Date Dose Rate Site iopamidol (ISOVUE-370) 76 % injection 90 mL 90 mL, Intravenous, IMG once as needed, Contrast, 1 dose, Starting on Sun12/23/21 at 1927, Until Sun12/23/21 at 1927 Given 12/23/2021 7:27 PM CDT 90 mLs Le ft Arm lactated ringers bolus infusion 1,000 mL 1,000 mL, Intravenous, Administer over 15 Minutes, Once, 1 dose, On Sun12/23/21 at 1830 New Bag 12/23/2021 6:54 PM CDT 1,000 mLs documented in this encounter Active and Recently Administered Medications Times are shown in CDT. Scheduled Medication Order 12/21/2021 12/22/2021 12/23/2021 lactated ringers bolus infusion 1,000 mL (COMPLETED) 1,000 mL, Intravenous, Administer over 15 Minutes, Once, 1 dose, On Sun12/23/21 at 1830 1854 (New Bag - Prov ider: Lore Anedrs RN)1948 (Infusion Stop Time - Provider: Irma Valentin RN) ondansetron (ZOFRAN) injection 4 mg 4 mg, Intravenous, Once, 1 dose, On Sun12/23/21 at 1830, IV push over 2-5 minutes. 1854 (Not Given - Pr ovider: Lore Anders RN - Reason: Patient/family declined) PRN Medication Order 12/21/2021 12/22/2021 12/23/2021 iopamidol (ISOVUE-370) 76 % injection 90 mL (COMPLETED) 90 mL, Intravenous, IMG once as needed, Contrast, 1 dose, Starting on Sun12/23/21 at 1927, Until Sun12/23/21 at 1926 192 (Given - Provid er: Patricia Child, RTR) documented in this encounter Additional Health Concerns Assessment Noted Time PHQ-9 Depression Total Score: 0 11/02/19 21 10:15 AM CDT documented as of this encounter Care Teams Test Conductor Relationship Specialty Start Date End Date Mildred Landers, KILN PACKER-BC [address] [facility], [address] [place] [address] PCP - General NURSE PRACTITIONER 12/13/18 documented as of this encounter
--- OUTSIDE RECORDS SUMMARY | 2024-03-12 23:57 | XMS_ITS | Encounter Summary ---
Author Organization [facility] Address [address] [place] [address]. [place], [place] [address] [place] [address] Care Team Providers Care Shot Blast Equipment Operator Name Role Phone Mildred Landers 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 No / Unsure 08/20/2021 3:00 PM CDT documented as of this encounter Last Filed Vital Signs Vital Sign Reading Time Taken Comments Blood Pressure 139/80 08/20/2021 3:38 PM CDT Pulse 82 08/20/2021 3:38 PM CDT Temperature 36.7 ??C (98.1 ??F) 08/20/2021 3:38 PM CD T Respiratory Rate 18 08/20/2021 3:38 PM CDT Oxygen Saturation 99% 08/20/2021 3:38 PM CDT Inhaled Oxygen Concentration - - Weight 97.5 kg (215 lb) 08/20/2021 3:38 PM CDT Height 177.8 cm (5' 10 ) 08/20/2021 3:38 PM CDT Body Mass Index 30.85 08/20/2021 3:38 PM CDT documented in this encounter Discharge Instructions * Discharge Instructions* DALILA Schultz - 08/20/2021 3:10 PM CDT Take medication as prescribed. Follow-up with your primary care provider in 5 to 7 days. Return emergency department symptoms worsen or new concerns. * Attachments The following attachments cannot be sent through Care Everywhere. * Sinusitis Discharge Instructions, Adult ([place]) documented in this encounter Medications at Time of Discharge cefdinir 300 MG Cap capsule Take 1 capsule (300 mg total) by mouth 2 (two) times daily for 7 days. 14 capsule 08/20/2021 08/27/2021 gabapentin 100 MG capsuleIndicatio ns:Shingles 1 tab 100 mg Q HS x 3 days, Then increase to BID x three days, then to TID. 30 capsule 01/17/2021 12/26/2021 predniSONE 50 MG tablet Take 1 tablet (50 mg total) by mouth daily for 5 days. 5 tablet 08/20/2021 08/25/2021 documented as of this encounter ED Notes * Daniela Gregorio RN - 08/20/2021 3:38 PM CDTSummary: sinus drainage Sinus drainage and cough. Ongoing for past month * DALILA Schultz - 08/20/2021 3:09 PM CDT ED NOTE Chief Complaint Chief Complaint Patient presents with ??? Sinus Problem History of Present Illness 31-year-old male with past history of seasonal allergies and asthma presenting to urgent care with complaint of worsening sinus pain over the past 2 weeks. Patient states he has been having sinus congestion over the past month and was treated with Augmentin approximately 2 weeks ago which provided relief however symptoms are worsening again. No relief with [id number] medications. Denies difficulty breathing, difficulty swallowing, fever or chills. Patient does have productive cough Medical History ALLERGIES: No Known Allergies MEDICATIONS: Prior to Admission medications Medication Sig Start Date End Date Taking? Authorizing Provider cefdinir 300 MG Cap capsule Take 1 capsule (300 mg total) by mouth 2 (two) times daily for 7 days. 08/20/21 08/27/21 Yes DALILA Schultz predniSONE 50 MG tablet Take 1 tablet (50 mg total) by mouth daily for 5 days. 08/20/21 08/25/21 Yes DALILA Schultz gabapentin 100 MG capsule 1 tab 100 mg Q HS x 3 days, Then increase to BID x three days, then to TID. 01/17/21 Mildred Landers [facility] PAST MEDICAL HISTORY: Past medical history negative for heart disease, cancer, and diabetes. Past Medical History: Diagnosis Date ??? Asthma [...] Systems Review of Systems Constitutional: Negative for activity change and appetite change. HENT: Positive for congestion and sinus pain. Negative for ear discharge, ear pain and sore throat. Respiratory: Positive for cough. Negative for shortness of breath. Cardiovascular: Negative for chest pain. Gastrointestinal: Negative for abdominal pain, nausea and vomiting. Musculoskeletal: Negative for back pain and neck pain. Neurological: Negative for dizziness, syncope and light-headedness. Physical Exam Filed Vitals: 08/20/21 1538 BP: 139/80 Pulse: 82 Resp: 18 Temp: 98.1 ??F (36.7 ??C) TempSrc: Temporal SpO2: 99% Weight: 97.5 kg (215 lb) Height: 5' 10 (1.778 m) Physical Exam Vitals and nursing note reviewed. Constitutional: General: He is not in acute distress. Appearance: He is well-developed. HENT: Head: Normocephalic. Right Ear: Tympanic membrane normal. Left Ear: Tympanic membrane normal. Nose: Congestion present. Right Sinus: Maxillary sinus tenderness present. Left Sinus: Maxillary sinus tenderness present. Eyes: Conjunctiva/sclera: Conjunctivae normal. Pulmonary: Effort: Pulmonary effort is normal. No respiratory distress. Breath sounds: No wheezing. Musculoskeletal: Cervical back: Normal range of motion and neck supple. Skin: General: Skin is warm and dry. Neurological: Mental Status: He is alert and oriented to person, place, and time. Psychiatric: Behavior: Behavior normal. Thought Content: Thought content normal. Judgment: Judgment normal. Diagnostic Studies / Procedures ELECTROCARDIOGRAMS: No results found for this visit on 08/20/21. LABORATORY STUDIES: No results found for this visit on 08/20/21. IMAGING STUDIES No orders to display ED Course / Medical Decision Making Patient with worsening sinus congestion over the past 2 weeks, will empirically start on antibiotics since steroids and patient will follow up with primary care Medications - No data to display Clinical Impression Sinusitis (Primary) Discharge Medication List as of 08/20/2021 3:34 PM START taking these medications Details cefdinir 300 MG Cap capsule Take 1 capsule (300 mg total) by mouth 2 (two) times daily for 7 days.,Starting 08/20/2021, Until 08/27/2021, Eprescribe Class: Eprescribe Pharmacy: [id number] [facility] [address] (Ph #: [phone]) predniSONE 50 MG tablet Take 1 tablet (50 mg total) by mouth daily for 5 days., Starting 08/20/2021, Until Kalyn 08/25/2021, Eprescribe Class: Eprescribe Pharmacy: [facility] [address] [place], [place] [address] [facility] [address] (Ph #: [phone]) Disposition: Discharge Follow-Up: CRISTIAN Bonner [address] [address] Schedule an appointment as soon as possible for a visit in 1 week As needed DALILA Schultz 08/20/2021 DALILA Schultz 08/20/21 1632 Cosigned by Niecy Ralph MD at 08/21/2021 11:41 PM CDT documented in this encounter Plan of Treatment Not on file documented as of this encounter Visit Diagnoses Diagnosis Sinusitis- Primary Unspecified sinusitis (chronic) documented in this encounter Additional Health Concerns Assessment Noted Time PHQ-9 Depression Total Score: 0 11/02/19 21 10:15 AM CDT documented as of this encounter Care Teams Shot Blast Equipment Operator Relationship Specialty Start Date End Date [facility] [address] [place], [place] [address] PCP - General NURSE PRACTITIONER 12/13/18 documented as of this encounter
--- OUTSIDE RECORDS SUMMARY | 2024-03-12 23:57 | XMS_ITS | Encounter Summary ---
Author Organization [facility] Address [address] [place] [address]. 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 No / Unsure 01/26/2022 3:39 PM CDT documented as of this encounter Medications at Time of Discharge pantoprazole EC (PROTONIX) 20 MG tabletIndications: Gastroesophageal reflux disease without esophagitis Take 1 tablet (20 mg total) by mouth daily. 30 tablet 12/26/2021 04/26/2022 documented as of this encounter Plan of Treatment Not on file documented as of this encounter Procedures Procedure Name Priority Date/Time Associated Diagnosis Comments PATHOLOGY Routine 01/26/2022 9:54 AM CDT Soft tissue mass documented in this encounter Results * Pathology (01/26/2022 9:54 AM CDT) [facility] REPORT ?[facility] ? [address] ?[place], [place] [address] ? [phone] ? Department of Pathology ? Pathology Report ? Surgical Pathology Report Patient Name: VIANNEY KATHLEEN ? : 1990 (Age: 31) ? Location: [facility] Gender: M ?Collected Date: 01/26/2022 Med Rec #: [id number] ?Date Received: 01/27/2022 Date Reported: 01/30/2022 Provider: HECTOR BOYD MD Specimen(s) Mass left anterior chest wall Final Pathologic Diagnosis SOFT TISSUE, LEFT ANTERIOR CHEST WALL, EXCISION: ? ANGIOLIPOMA Electronically Signed Out ? LYNETTE KOWALSKI MD Pathologist SMO:keya Microscopic Description: Microscopic examination substantiates above diagnosis. Clinical History M79.89 soft tissue mass Gross Description The specimen is received in a single formalin-filled container labeled with the patient's name (Vianney Kathleen), date, and mass left anterior chest wall. It contains four fragments of lobulated yellow adipose tissue ranging from 0.6 x 0.4 x 0.4 cm to 1.7 x 1.9 x 1.2 cm. ??The margin of the largest fragment is inked black. ??It is sectioned to show crow-yellow soft tissue throughout. Machine Finisher sections are submitted in two cassettes. ??SO/sml : Billing Fee Code(s): [id number] [facility] 01/26/2022 9:54 AM CDT 01/27/2022 9:54 AM CDT Comment:Mass left anterior c hest wall us Hector Boyd MD PATHOLOGY/CYTOLOGY BERNARDINO ADAME Final Result Performing Organization Address City/State/[facility] Co de Phone Number [facility] [address] [place] [address], documented in this encounter Visit Diagnoses Diagnosis Soft tissue mass Disorders of soft tissue, unspecified documented in this encounter Additional Health Concerns Assessment Noted Time PHQ-9 Depression Total Score: 0 11/02/19 21 10:15 AM CDT documented as of this encounter Care Teams Public Address Systems Mechanic Relationship Specialty Start Date End Date Mildred Landers, DIGITAL LIBRARIAN- [address] [facility], [address] [place] [address] PCP - General NURSE PRACTITIONER 12/13/18 documented as of this encounter
--- OUTSIDE RECORDS SUMMARY | 2024-03-12 23:57 | XMS_ITS | Encounter Summary ---
Author Organization [facility] Address [address] [place] [address]. [place] [address] [place] [address] Care Team Providers Care Safety And Skill Based Pay Manager Name Role Phone Mildred Landers [facility] Primary Care Provider + Reason for Visit * Reason Comments Mass Post mass excision l eft anterior chest wall 01/26/22 Encounter Details Date Type Department Care Team (Late st Contact Info) Description 02/13/2022 4:00 PM AIRPLANE DISPATCH CLERK Office Visit [facility] General Surgery - [place] [address] [facility], [address] [place] [address] [place] [address] [facility] [address] [place] [address] Mass (Post mass excision left anterior chest wall 01/26/22) Social History Tobacco Use Types Packs/Day Years [...] on file 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 No / Unsure 02/13/2022 3:56 PM AIRPLANE DISPATCH CLERK documented as of this encounter Last Filed Vital Signs Vital Sign Reading Time Taken Comments Blood Pressure 139/88 02/13/2022 4:10 PM AIRPLANE DISPATCH CLERK Pulse 77 02/13/2022 4:10 PM AIRPLANE DISPATCH CLERK Temperature 36.9 ??C (98.5 ??F) 02/13/2022 4:10 PM CS T Respiratory Rate 20 02/13/2022 4:10 PM AIRPLANE DISPATCH CLERK Oxygen Saturation 99% 02/13/2022 4:10 PM AIRPLANE DISPATCH CLERK Inhaled Oxygen Concentration - - Weight - - Height - - Body Mass Index - - documented in this encounter Patient Instructions * Patient Instructions* Hector Boyd MD - 02/13/2022 4:00 PM AIRPLANE DISPATCH CLERK If any of the following occur, call your doctor or go to the nearest emergency room: Increased redness, pain, swelling or red streaks Fever (temperature > 101 ?F) Excessive or green drainage or foul odor If the edges or the wound do not appear to be closing together or wound breaks open LANE DISPATCH CLERK documented in this encounter Progress Notes * Hector Boyd MD - 02/13/2022 4:00 PM CST Reason for Visit: Mass (Post mass excision left anterior chest wall 01/26/22) History of Present Illness: The patient is here for post surgery follow up. No issues There is no problem list on file for this patient. No Known Allergies Outpatient Medications Marked as Taking for the 02/13/22 encounter (Office Visit) with Hector Boyd MD [...] Negative. Musculoskeletal: Negative. Skin: Negative for rash. Allergic/Immunologic: Negative. Neurological: Negative for dizziness and light-headedness. Hematological: Negative. Psychiatric/Behavioral: Negative. I have reviewed and confirmed my staff's documentation of the patient's past medical, surgical, family and social history.. Vitals: 02/13/22 1610 Patient Position: Sitting BP Location: Right arm Cuff size: Adult Large BP: 139/88 Pulse: 77 Filed Vitals: 02/13/22 1610 BP: 139/88 Pulse: 77 Resp: 20 Temp: 98.5 ??F (36.9 ??C) TempSrc: Core SpO2: 99% PainSc: 0 (0-10 Scale) PHYSICAL EXAM: General appearance: alert and oriented [...] normal. No masses, no organomegaly; no hernias Incisions intact, clean and dry. No drainage or erythema Sutures removed, Steri-strips placed Rectal: Deferred Extremities: extremities normal, atraumatic, no cyanosis or edema. Skin: No ecchymosis, petechiae, or rashes. Neuro: Nonfocal. Musculoskeletal: No joint tenderness or effusion. No spine tenderness. Psychiatric: The patient has a normal mood and affect. His behavior is normal [I reviewed the digital images of the patient's imaging studies] No results found. Pathology results if available were discussed in details with the patient/family Surgical Pathology Report Patient Name: VIANNEY KATHLEEN ? : 1990 (Age: 31) ? Location: [facility] Gender: M ?Collected Date: 01/26/2022 [facility] Rec #: [id number] ?Date Received: 01/27/2022 Date Reported: 01/30/2022 Provider: HECTOR BOYD MD Specimen(s) Mass left anterior chest wall Final Pathologic Diagnosis SOFT TISSUE, LEFT ANTERIOR CHEST WALL, EXCISION: ?ANGIOLIPOMA ?? Electronically Signed Out ? LYNETTE KOWALSKI MD Assessment and Plan: Keep the wound clean and dry Take medication ( if any) as prescribed Okay to go back to work Follow up as needed The patient is encouraged to call for any questions, problems or concerns. I spent 15 minutes today reviewing the patient's medical record, obtaining history, performing an exam, ordering medications, tests, and/or procedures, documenting in the medical record, referring and/or communicating with other health care providers, counseling and educating the patient/family/caregiver, reviewing and communicating test results, and coordination of care. Again, thank you for allowing me to provide consultative services and to participate in the care ofVianney Kathleen. Note: This note was created with the aid of dictation software, thus there may be some word substitutions or errors. HECTOR BOYD MD Referring Provider: Leesa PCP: KIERSTEN ARMIJO LANE DISPATCH CLERK documented in this encounter Plan of Treatment Not on file documented as of this encounter Visit Diagnoses Diagnosis Postoperative follow-up- Primary Follow-up examination, following unspecified surgery documented in this encounter Additional Health Concerns Assessment Noted Time PHQ-9 Depression Total Score: 0 11/02/19 21 10:15 AM CDT documented as of this encounter Care Teams Safety And Skill Based Pay Manager Relationship Specialty Start Date End Date Mildred Landers FNP-BC [address] [facility], [address] [place] [address] PCP - General NURSE PRACTITIONER 12/13/18 documented as of this encounter
--- OUTSIDE RECORDS SUMMARY | 2024-03-12 23:57 | XMS_ITS | Encounter Summary ---
Author Organization [facility] Address [address] [place] [address]. 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
--- OUTSIDE RECORDS SUMMARY | 2024-03-12 23:57 | XMS_ITS | Encounter Summary ---
Author Organization [facility] Address [address] [place] [address]. [place] [address] [place] [address] Care Team Providers Care Edgerman Name Role Phone Mildred Landers [facility] Primary Care Provider + Reason for Referral * Imaging (Emergency) - Closed Specialty Diagnoses / Procedures Referred By Enrique murillo Referred To Contact RADIOLOGY Procedures CTA CHEST Surendra Nolan MD [address] [place] [address] Phone: tel: fax: Referral ID Status Reason Start Date Expiration Date Visits Re quested Visits Authorized [id number] Closed 01/14/2021 02/14/2022 1 1 Reason for Visit * Reason Comments Chest Pain Encounter Details Date Type Department Care Team (Late st Contact Info) Description 01/14/2021 7:34 PM CDT - 01/14/2021 9:15 PM CDT Emergency [facility] Emergency Room [address] [place] [address] Surendra Nolan MD [address] [place], [place] [id number] Chest Pain Discharge Disposition: Home or Self Care [...] on file Legal Sex Male 6:13 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 No / Unsure 01/14/2021 7:37 PM CDT documented as of this encounter Last Filed Vital Signs Vital Sign Reading Time Taken Comments Blood Pressure 128/81 01/14/2021 9:05 PM CDT Pulse 87 01/14/2021 9:10 PM CDT Temperature 37.7 ??C (99.9 ??F) 01/14/2021 7:37 PM CD T Respiratory Rate 15 01/14/2021 9:10 PM CDT Oxygen Saturation 98% 01/14/2021 9:10 PM CDT Inhaled Oxygen Concentration - - Weight 97.5 kg (215 lb) 01/14/2021 7:37 PM CDT Height 177.8 cm (5' 10 ) 01/14/2021 7:37 PM CDT Body Mass Index 30.85 01/14/2021 7:37 PM CDT documented in this encounter Discharge Instructions * Discharge Instructions* Surendra Nolan MD - 01/14/2021 8:47 PM CDT Take ibuprofen as needed for any ongoing symtpoms. Contact your primary doctor if you have worsening symptoms. documented in this encounter ED Notes * Surendra Nolan MD - 01/14/2021 7:45 PM CDT Chief Complaint Chief Complaint Patient presents with ??? Chest Pain History of Present Illness Healthy 30-year-old male here with complaints of several days of chest tightness subsequent to a Covid shot on 01/02/2021. Patient denies fever. He does report some chills. His chest tightness is unchanged by anything and is mild in intensity. No previous similar symptoms. Denies body aches shortness of breath or palpitations. Patient was seen by his primary care doctor and a chest x-ray and D-dimer was ordered. His chest x-ray was negative. His D-dimer was greater than 1000. Medical History ALLERGIES: No Known Allergies MEDICATIONS: Prior to Admission medications Not on File PAST MEDICAL HISTORY: Past Medical History: Diagnosis [...] Review of Systems Review of Systems Constitutional: Positive for chills. Negative for fever. HENT: Negative. Respiratory: Negative for cough, chest tightness and shortness of breath. Cardiovascular: Negative. Negative for chest pain. Gastrointestinal: Negative for abdominal distention and abdominal pain. Musculoskeletal: Negative. Neurological: Negative for seizures and syncope. Psychiatric/Behavioral: Negative. All other systems reviewed and are negative. Physical Exam Filed Vitals: 01/14/211936 BP: (!) 153/88 Pulse: 97 Resp: 20 Temp: 99.9 ??F (37.7 ??C) TempSrc: Temporal SpO2: 95% Weight: 97.5 kg (215 lb) Height: 5' 10 (1.778 m) Physical Exam Vitals and nursing note reviewed. Constitutional: General: He is not in acute distress. Appearance: He is well-developed. HENT: Head: Normocephalic and atraumatic. Right Ear: External ear normal. Left Ear: External ear normal. Nose: Nose normal. Eyes: General: No scleral icterus. Pupils: Pupils are equal, round, and reactive to light. Cardiovascular: Rate and Rhythm: Regular rhythm. Tachycardia present. Pulses: Normal pulses. Heart sounds: Normal heart sounds. Pulmonary: Effort: Pulmonary effort is normal. No respiratory distress. Breath sounds: Normal breath sounds. No stridor. No wheezing. Abdominal: General: Bowel sounds are normal. There is no distension. Palpations: Abdomen is soft. Musculoskeletal: General: No deformity. Normal range of motion. Cervical back: Normal range of motion and neck supple. Skin: General: Skin is warm and dry. Capillary Refill: Capillary refill takes less than 2 seconds. Findings: No rash. Neurological: Mental Status: He is alert and oriented to person, place, and time. Cranial Nerves: No cranial nerve deficit. Psychiatric: Mood and Affect: Mood normal. Behavior: Behavior normal. 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 Rate 100. No ectopy. Normal QRS. Some mild CO depression present. No ST change to suggest pericarditis LABORATORY STUDIES: Results for orders placed or performed during the hospital encounter of 01/14/21 COMPREHENSIVE METABOLIC PANEL Result Value Ref Range GLUCOSE 111 (H) 70 - 99 MG/DL BUN 13 7 - 18 MG/DL CREATININE S/P/B 1.06 0.7 - 1.3 MG/DL SODIUM 139 136 - 145 MMOL/L POTASSIUM 3.8 3.5 - 5.1 MMOL/L CHLORIDE S/P/B 101 100 - 108 MMOL/L CO2 25.5 21 - 32 MMOL/L CALCIUM 8.6 8.5 - 10.1 MG/DL BILIRUBIN TOTAL S/P/B 0.6 0.2 - 1.2 MG/DL TOTAL PROTEIN S/P/B 7.6 6.4 - 8.2 G/DL ALBUMIN S/P/B 4.2 3.4 - 5.0 G/DL AST 17 15 - 37 U/L ALT 20 16 - 60 U/L ALKALINE PHOSPHATASE S/P/B 66 50 - 136 U/L ANION GAP 12.5 5 - 15 MMOL/L BUN CREATININE RATIO 12.3 6 - 26 A/G RATIO 1.2 1.0 - 2.0 RATIO eGFR Non-Afr. Amer. >90 >90 ML/MIN/1.73 M2 eGFR Afr. Amer. >90 >90 ML/MIN/1.73 M2 CBC W/DIFF AUTOMATED Result Value Ref Range WBC 9.4 4.8 - 10.8 x10'3/uL RBC 5.30 4.50 - 5.90 x10'6/uL HGB 15.3 13.5 - 17.5 G/DL HCT 44.4 41 - 53 % MCV 83.8 80 - 100 FL MCH 28.9 26.0 - 34.0 PG MCHC 34.5 31.0 - 37.0 G/DL RDW 12.7 11.5 - 14.5 % PLT 357 (H) 150 - 350 x10'3/uL MPV 9.6 7.0 - 10.4 FL CBC COMMENT AUTOMATED RBC MORPHOLOGY AND PLATELET EVALUATION NORMAL NEUTROPHILS 72.0 (H) 50 - 70 % LYMPHOCYTES 19.7 18 - 42 % MONOCYTES 7.6 2.0 - 11.0 % EOSINOPHILS 0.4 (L) 1.0 - 3.0 % BASOPHILS 0.1 0.0 - 1.0 % IMMATURE GRANS 0.2 0.00 - 0.43 % ABS. NEUTROPHILS TOTAL 6.81 1.69 - 7.81 x10'3/uL ABS. LYMPHOCYTES 1.86 0.21 - 5.42 x10'3/uL ABS. MONOCYTES 0.72 0.04 - 1.37 x10'3/uL ABS. EOSINOPHILS 0.04 0.00 - 0.68 x10'3/uL ABS. BASOPHILS 0.01 0.00 - 0.08 x10'3/uL ABS. IMMATURE GRANULOCYTES 0.02 0.00 - 0.06 x10'3/uL PROTIME/INR, VENOUS Result Value Ref Range Protime 12.8 (H) 9.4 - 12.5 SEC INR 1.1 0.9 - 1.1 PARTIAL THROMBOPLASTIN TIME,PTT Result Value Ref Range PTT 35.4 26.4 - 36.1 SEC TROPONIN, QUANT Result Value Ref Range TROPONIN I HIGH SENSITIVITY 7 0 - 79 ng/L CORONAVIRUS (COVID-19) ANTIGEN [RAPID IN HOUSE TEST] Specimen: NASAL Result Value Ref Range CORONAVIRUS ANTIGEN IA NEGATIVE NEGATIVE Specimen Type NASAL FIRST TEST YES EMPLOYED IN HEALTHCARE NO SYMPTOMATIC DEFINED BY CDC NO DATE OF SYMPTOM ONSET UNKNOWN HOSPITALIZATION STATUS NO PATIENT IN ICU UNKNOWN RESIDENT OF [facility] NO UNKNOWN IMAGING STUDIES CTA CHEST Final Result by User, [id number] (01/14 2042) EXAMINATION: CTA chest pulmonary embolus HISTORY: Chest pain. Elevated d-dimer. Concern for pulmonary embolus. COMPARISON: Chest x-ray 01/14/2021. TECHNIQUE: Axial CTA images of the chest after the uneventful intravenous administration of 50 mL of Isovue-370 given through the right antecubital fossa. Sagittal and coronal reformatted image sets with dedicated post processed 3-D/MIP images according to the PE protocol. A dose lowering technique was used for this procedure, which may include, but is not limited to, dose reduction technique, automated exposure control, the use of degenerative reconstruction, and ALARA/image gently techniques. FINDINGS: Vascular: There is suboptimal opacification of the pulmonary arteries. There is respiratory motion artifact. This limits evaluation for pulmonary embolus, especially in the subsegmental pulmonary arteries. The main pulmonary artery is normal caliber. No large central or segmental pulmonary embolus is identified. No evidence of right heart strain. The aorta is normal caliber. Chest: The heart is normally sized. There is no pericardial effusion. No mediastinal or hilar lymphadenopathy. There are calcified right hilar lymph nodes. There is no axillary lymphadenopathy. No evidence of pneumonia, pleural effusion, or pneumothorax. The lungs are clear bilaterally. There is no bronchial dilatation or mucous plugging. Upper abdomen: The partially included portions of the upper abdomen are negative for acute appearing abnormality. Osseous: No acute osseous abnormalities are identified. IMPRESSION: 1. No evidence of pulmonary thromboembolic disease. 2. No acute findings. Referred By: SURENDRA NOLAN Interpreted By: Yuniel Doe DO, 01/14/2021 8:31 PM ED Course / Medical Decision Making 30-year-old male here with chest tightness and positive D-dimer in the setting of recent Covid shot. He appears well overall. Outpatient chest x-ray result was reviewed and was negative. No EKG had been performed. Will obtain EKG, labs, CTA of the chest. CT negative for PE. EKG not indicative of pericarditis however no comparison available to evaluate the mild CO depression. Troponin negative. Patient made stable the course of his stay. No indications for more aggressive therapy. Toradol provided and instructions for ibuprofen for any ongoing symptoms provided. Patient struck to follow-up the symptoms persist. Clinical Impression Chest tightness (Primary) Disposition: Discharge Surendra Nolan MD 01/14/212123 * Chicho Chavez RN - 01/14/2021 7:41 PM CDT Pt to er ambulatory with c/o chest pressure off and on since his covid vaccine on 01/02/21. Pt denies sob but c/o chest pressure rated at 3/10. Pt did see his provider today and had a d-dimer drawn and was elevated. documented in this encounter Plan of Treatment Not on file documented as of this encounter Procedures Procedure Name Priority Date/Time Associated Diagnosis Comments CTA CHEST STAT 01/14/2021 8:22 PM CDT ECG 12-LEAD Routine 01/14/2021 7:50 PM CDT CORONAVIRUS (COVID-19) ANTIGEN DIRECT OPTICAL STAT 01/14/2021 7:50 PM CDT PARTIAL THROMBOPLASTIN TIME,PTT STAT 01/14/2021 7:45 PM CDT PROTHROMBIN TIME, VENOUS STAT 01/14/2021 7:45 PM CDT COMPREHENSIVE METABOLIC PANEL STAT 01/14/2021 7:45 PM CDT CBC W/DIFF AUTOMATED STAT 01/14/2021 7:45 PM CDT TROPONIN, QUANT STAT 01/14/2021 7:45 PM CDT documented in this encounter Results * CTA CHEST (01/14/2021 8:22 PM CDT) Anatomical Region Laterality Modality Chest Computed Tomogra phy 01/14/2021 8:31 PM CDT Impressions 01/14/2021 8:41 PM CDT IMPRESSION: 1. No evidence of pulmonary thromboembolic disease. 2. No acute findings. Referred By: SURENDRA NOLAN Interpreted By: Yuniel Doe DO, 01/14/2021 8:31 PM Narrative 01/14/2021 8:41 PM CDT EXAMINATION: CTA chest pulmonary embolus HISTORY: Chest pain. Elevated d-dimer. Concern for pulmonary embolus. COMPARISON: Chest x-ray 01/14/2021. TECHNIQUE: Axial CTA images of the chest after the uneventful intravenous administration of 50 mL of Isovue-370 given through the right antecubital fossa. Sagittal and coronal reformatted image sets with dedicated post processed 3-D/MIP images according to the PE protocol. A dose lowering technique was used for this procedure, which may include, but is not limited to, dose reduction technique, automated exposure control, the use of degenerative reconstruction, and ALARA/image gently techniques. FINDINGS: Vascular: There is suboptimal opacification of the pulmonary arteries. There is respiratory motion artifact. This limits evaluation for pulmonary embolus, especially in the subsegmental pulmonary arteries. The main pulmonary artery is normal caliber. No large central or segmental pulmonary embolus is identified. No evidence of right heart strain. The aorta is normal caliber. Chest: The heart is normally sized. There is no pericardial effusion. No mediastinal or hilar lymphadenopathy. There are calcified right hilar lymph nodes. There is no axillary lymphadenopathy. No evidence of pneumonia, pleural effusion, or pneumothorax. The lungs are clear bilaterally. There is no bronchial dilatation or mucous plugging. Upper abdomen: The partially included portions of the upper abdomen are negative for acute appearing abnormality. Osseous: No acute osseous abnormalities are identified. Procedure Note Yuniel Doe DO - 01/14/2021 EXAMINATION: CTA chest pulmonary embolus HISTORY: Chest pain. Elevated d-dimer. Concern for pulmonary embolus. COMPARISON: Chest x-ray 01/14/2021. TECHNIQUE: Axial CTA images of the chest after the uneventful intravenousadministration of 50 mL of Isovue-370 given through the right antecubitalfossa. Sagittal and coronal reformatted image sets with dedicated postprocessed 3-D/MIP images according to the PE protocol. A dose lowering technique was used for this procedure, which may include,but is not limited to, dose reduction technique, automated exposurecontrol, the use of degenerative reconstruction, and ALARA/image gentlytechniques. FINDINGS: Vascular: There is suboptimal opacification of the pulmonary arteries.There is respiratory motion artifact. This limits evaluation for pulmonaryembolus, especially in the subsegmental pulmonary arteries. The mainpulmonary artery is normal caliber. No large central or segmentalpulmonary embolus is identified. No evidence of right heart strain. Theaorta is normal caliber. Chest: The heart is normally sized. There is no pericardial effusion. Nomediastinal or hilar lymphadenopathy. There are calcified right hilarlymph nodes. There is no axillary lymphadenopathy. No evidence of pneumonia, pleural effusion, or pneumothorax. The lungs areclear bilaterally. There is no bronchial dilatation or mucous plugging. Upper abdomen: The partially included portions of the upper abdomen arenegative for acute appearing abnormality. Osseous: No acute osseous abnormalities are identified. IMPRESSION: 1. No evidence of pulmonary thromboembolic disease. 2. No acute findings. Referred By: SURENDRA NOLAN Interpreted By: Yuniel Doe DO, 01/14/2021 8:31 PM us Surendra Nolan MD CT Final Resu lt * ECG 12 lead (01/14/2021 7:50 PM CDT) 01/14/2021 7:50 PM CDT Narrative [facility] - 01/15/2021 1:58 PM CDT ?[facility] ? Test Date: ?2021-01-14 Pat Name: ? VIANNEY KATHLEEN ? Department: ? Room: ? EXAM 202 Gender: ? Male ? Bacon Stringer: ?? PHTK : ?1990 ? Requested By: SURENDRA RATHERT Order Number: [id number] ? Reading MD: ?? Devyn Childress ? Measurements Intervals ?[place] ? Rate: ? 100 ?P: ?66 CO: ? 139 ?QRS: ?72 QRSD: ? 97 ? T: ?55 QT: ? 321 ? QTc: ?414 ? 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 RAD * CORONAVIRUS (COVID-19) ANTIGEN [RAPID IN HOUSE TEST] (01/14/2021 7:50 PM CDT) Pathologist [facility] CORONAVIRUS ANTIGEN IA NEGATIVE NEGATIVE 01/14/2021 8:12 PM CDT [facility] Comment: NEGATIVE RESULTS DO NOT RULE OUT SARS-COV-2 INFECTION AND SHOULD NOT BE USED THE SOLE BASIS FOR TREATMENT OR PATIENT MANAGEMENT DECISIONS, INCLUDING INFECTION CONTROL DECISIONS. NEGATIVE RESULTS SHOULD BE CONSIDERED IN THE CONTEXT OF A PATIENT'S RECENT EXPOSURES, HISTORY AND THE PRESENCE OF CLINICAL SIGNS AND SYMPTOMS CONSISTENT WITH COVID 19. THIS TEST HAS BEEN AUTHORIZED BY THE FDA UNDER AN EMERGENCY USE AUTHORIZATION (EUA) FOR USE BY AUTHORIZED LABORATORIES. SPECIMEN TYPE NASAL 01/14/2021 7:50 PM CDT [facility] FIRST TEST YES 01/14/2021 7:50 PM CDT [facility] EMPLOYED IN HEALTHCARE NO 01/14/2021 7:50 PM CDT [facility] SYMPTOMATIC DEFINED BY CDC NO 01/14/2021 7:50 PM CDT [facility] DATE OF SYMPTOM ONSET UNKNOWN 01/14/2021 7:52 PM CDT [facility] HOSPITALIZATION STATUS NO 01/14/2021 7:50 PM CDT [facility] PATIENT IN ICU UNKNOWN 01/14/2021 7:52 PM CDT [facility] RESIDENT OF [facility] NO 01/14/2021 7:50 PM CDT [facility] UNKNOWN 01/14/2021 7:52 PM CDT [facility] Specimen from nose (specimen) NASAL STRUCTURE / Unknown 01/14/2021 7:50 PM CDT Surendra Nolan MD MICROBIOLOGY - GENERAL ORD ERABLES Final Result [facility] [address] [place] [address], * TROPONIN, QUANT (01/14/2021 7:45 PM CDT) TROPONIN I HIGH SENSITIVITY 7 0 - 79 ng/L 01/14/2021 8:19 PM CDT [facility] Comment: HIGH DOSES OF BIOTIN, TROPONIN-SPECIFIC AUTOANTIBODIES, AND ANTIBODY THERAPY CONTAINING HAMA MAY INTERFERE WITH THIS TEST RESULT. CORRELATION TO CLINICAL HISTORY AND PRESENTATION RECOMMENDED. 01/14/2021 7:45 PM CDT us Surendra Nolan MD LABORATORY Final Resu lt Performing Organization Address City/[facility]/ZIP Co de Phone Number [facility] [address] [place] [id number], [place] [phone] * PARTIAL THROMBOPLASTIN TIME,PTT (01/14/2021 7:45 PM CDT) PTT 35.4 26.4 - 36.1 SEC 01/14/2021 8:08 PM CDT [facility] 01/14/2021 7:45 PM CDT us Surendra Nolan MD LABORATORY Final Resu lt Performing Organization Address [facility]/ZIP Co de Phone Number [facility] [address] [place] [address], [place] [phone] * (ABNORMAL) PROTIME/INR, VENOUS (01/14/2021 7:45 PM CDT) PROTIME 12.8(H) 9.4 - 12.5 SEC 01/14/2021 8:08 PM CDT [facility] INR 1.1 0.9 - 1.1 01/14/2021 8:08 PM CDT [facility] Comment: Recommended INR Therapeutic Goals: ??2.0-3.0 Routine Therapy ??2.5-3.5 Mechanical Prosthetic Valves (High Risk) 01/14/2021 7:45 PM CDT us Surendra Nolan MD LABORATORY Final Resu lt Performing Organization Address City/[facility]/ZIP Co de Phone Number [facility] [address] [place] [address], * (ABNORMAL) CBC W/DIFF AUTOMATED (01/14/2021 7:45 PM CDT) [facility] WBC 9.4 4.8 - 10.8 x10'3/uL 01/14/2021 7:59 PM CDT [facility] RBC 5.30 4.50 - 5.90 x10'6/uL 01/14/2021 7:59 PM CDT [facility] HGB 15.3 13.5 - 17.5 G/DL 01/14/2021 7:59 PM CDT [facility] HCT 44.4 41 - 53 % 01/14/2021 7:59 PM CDT [facility] MCV 83.8 80 - 100 FL 01/14/2021 7:59 PM CDT [facility] MCH 28.9 26.0 - 34.0 PG 01/14/2021 7:59 PM CDT [facility] MCHC 34.5 31.0 - 37.0 G/DL 01/14/2021 7:59 PM CDT [facility] RDW 12.7 11.5 - 14.5 % 01/14/2021 7:59 PM CDT [facility] PLT 357(H) 150 - 350 x10'3/uL 01/14/2021 7:59 PM CDT [facility] MPV 9.6 7.0 - 10.4 FL 01/14/2021 7:59 PM CDT [facility] CBC COMMENT AUTOMATED RBC MORPHOLOGY AND PLATELET EVALUATION NORMAL 01/14/2021 7:59 PM CDT [facility] NEUTROPHILS % 72.0(H) 50 - 70 % 01/14/2021 7:59 PM CDT [facility] LYMPHOCYTES % 19.7 18 - 42 % 01/14/2021 7:59 PM CDT [facility] MONOCYTES % 7.6 2.0 - 11.0 % 01/14/2021 7:59 PM CDT [facility] EOSINOPHILS 0.4(L) 1.0 - 3.0 % 01/14/2021 7:59 PM CDT [facility] BASOPHILS 0.1 0.0 - 1.0 % 01/14/2021 7:59 PM CDT [facility] IMMATURE GRANS % 0.2 0.00 - 0.43 % 01/14/2021 7:59 PM CDT [facility] ABS. NEUTROPHILS TOTAL 6.81 1.69 - 7.81 x10'3/uL 01/14/2021 7:59 PM CDT [facility] ABS. LYMPHOCYTES 1.86 0.21 - 5.42 x10'3/uL 01/14/2021 7:59 PM CDT [facility] ABS. MONOCYTES 0.72 0.04 - 1.37 x10'3/uL 01/14/2021 7:59 PM CDT [facility] ABS. EOSINOPHILS 0.04 0.00 - 0.68 x10'3/uL 01/14/2021 7:59 PM CDT [facility] ABS. BASOPHILS 0.01 0.00 - 0.08 x10'3/uL 01/14/2021 7:59 PM CDT [facility] ABS. IMMATURE GRANULOCYTES 0.02 0.00 - 0.06 x10'3/uL 01/14/2021 7:59 PM CDT [facility] 01/14/2021 7:45 PM CDT Surendra Nolan MD LABORATORY Final Resu lt [facility] [address] [place] [address], * (ABNORMAL) COMPREHENSIVE METABOLIC PANEL (01/14/2021 7:45 PM CDT) [facility] GLUCOSE 111(H) 70 - 99 MG/DL 01/14/2021 8:15 PM CDT [facility] BUN 13 7 - 18 MG/DL 01/14/2021 8:15 PM CDT [facility] CREATININE S/P/B 1.06 0.7 - 1.3 MG/DL 01/14/2021 8:15 PM CDT [facility] SODIUM S/P/B 139 136 - 145 MMOL/L 01/14/2021 8:15 PM CDT [facility] POTASSIUM S/P/B 3.8 3.5 - 5.1 MMOL/L 01/14/2021 8:15 PM CDT [facility] CHLORIDE S/P/B 101 100 - 108 MMOL/L 01/14/2021 8:15 PM CDT [facility] CO2 25.5 21 - 32 MMOL/L 01/14/2021 8:15 PM CDT [facility] CALCIUM S/P/B 8.6 8.5 - 10.1 MG/DL 01/14/2021 8:15 PM CDT [facility] BILIRUBIN TOTAL S/P/B 0.6 0.2 - 1.2 MG/DL 01/14/2021 8:15 PM CDT [facility] Comment: THIS ASSAY IS NOT RECOMMENDED FOR PATIENTS UNDERGOING TREATMENT WITH ELTROMBOPAG DUE TO THE POTENTIAL FOR FALSELY ELEVATED RESULTS. TOTAL PROTEIN S/P/B 7.6 6.4 - 8.2 G/DL 01/14/2021 8:15 PM CDT [facility] ALBUMIN S/P/B 4.2 3.4 - 5.0 G/DL 01/14/2021 8:15 PM CDT [facility] AST 17 15 - 37 U/L 01/14/2021 8:15 PM CDT [facility] ALT 20 16 - 60 U/L 01/14/2021 8:15 PM CDT [facility] ALKALINE PHOSPHATASE S/P/B 66 50 - 136 U/L 01/14/2021 8:15 PM CDT [facility] ANION GAP 12.5 5 - 15 MMOL/L 01/14/2021 8:15 PM CDT [facility] BUN CREATININE RATIO 12.3 6 - 26 01/14/2021 8:15 PM CDT [facility] A/G RATIO 1.2 1.0 - 2.0 RATIO 01/14/2021 8:15 PM T [facility] EGFR NON-AFR. AMER. >90 >90 ML/MIN/1.7 3 M2 01/14/2021 8:15 PM T [facility] EGFR AFR. AMER. >90 >90 ML/MIN/1.7 3 M2 01/14/2021 8:15 PM T [facility] Comment: NOTE: eGFR is not calculated for patients <18 years of age. This is an estimated GFR (CKD EPI) and should not be used for calculating drug doses. 01/14/2021 7:45 PM CDT us Surendra Nolan MD LABORATORY Final Resu lt [facility] [address] [place] [address], [place] [phone] documented in this encounter Visit Diagnoses Diagnosis Chest tightness- Primary Other chest pain documented in this encounter Administered Medications Inactive Administered Medications - up to 3 most recent administrations Medication Order MAR Action Action Date Dose Rate Site iopamidol (ISOVUE-370) 76 % injection 50 mL 50 mL, Intravenous, IMG once as needed, Contrast, 1 dose, Starting on Sun01/14/21 at 2023, Until Sun01/14/21 at 2023 Given 01/14/2021 8:24 PM CDT 50 mLs ketorolac (TORADOL) injection 15 mg 15 mg, Intravenous, Once, 1 dose, On Sun01/14/21 at 2099 Given 01/14/2021 8:54 PM CDT 15 mg documented in this encounter Active and Recently Administered Medications Times are shown in CDT. Scheduled Medication Order 01/12/2021 01/13/2021 01/14/2021 ketorolac (TORADOL) injection 15 mg (COMPLETED) 15 mg, Intravenous, Once, 1 dose, On Sun01/14/21 at 2099 2053 (Given - Provid er: Chicho Chavez RN) PRN Medication Order 01/12/2021 01/13/2021 01/14/2021 iopamidol (ISOVUE-370) 76 % injection 50 mL (COMPLETED) 50 mL, Intravenous, IMG once as needed, Contrast, 1 dose, Starting on Sun01/14/21 at 2023, Until Sun01/14/21 at 2023 2023 (Given - Provid er: Kristopher Johnson, RTR) documented in this encounter Additional Health Concerns Infection Onset Date Last Indicated Resolved Time COVID-19 Rule Out 01/14/2021 01/14/2021 01/14/2021 8:12 PM CDT Assessment Noted Time PHQ-9 Depression Total Score: 0 11/02/19 10:15 AM CDT documented as of this encounter Care Teams Edgerman Relationship Specialty Start Date End Date Mildred Landers, MANAGER BUSINESS MANAGEMENT-BC [address] [facility], [address] [place] [address] PCP - General NURSE PRACTITIONER 12/13/18 documented as of this encounter
--- OUTSIDE RECORDS SUMMARY | 2024-03-12 23:57 | XMS_ITS | Encounter Summary ---
Author Organization [facility] Address [address] [place] [address]. [place] [address] [place] [address] Care Team Providers Care Single Pass Soil Stabilizer Operator Name Role Phone Mildred Landers [facility] Primary Care Provider + Reason for Visit * Reason Comments Establish Care Cough cough x 1 month, he has a mold allergy and they found mold in basement this week that they are not sure how long it has been there. Encounter Details Date Type Department Care Team (Late st Contact Info) Description 12/13/2018 11:00 AM CDT Office Visit [facility] [address] [place] [address] Mildred Landers, [facility] [address] [facility], [address] [place] [address] Establish Care; Cough (cough x 1 month, he has a mold allergy and they found mold in basement this week that they are not sure how long it has been there. 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 Gender Identity Not on file Sexual Orientation Not on file documented as of this encounter Last Filed Vital Signs Vital Sign Reading Time Taken Comments Blood Pressure 136/82 12/13/2018 11:20 AM CDT Pulse 82 12/13/2018 11:15 AM CDT Temperature 36.7 ??C (98.1 ??F) 12/13/2018 1 1:15 AM CDT Respiratory Rate 20 12/13/2018 11:1 5 AM CDT Oxygen Saturation 98% 12/13/2018 11: 15 AM CDT Inhaled Oxygen Concentration - - Weight 96.1 kg (211 lb 12.8 oz) 019 11:15 AM CDT Height 177.8 cm (5' 10 ) 12/13/2018 11: 15 AM CDT Body Mass Index 30.39 12/13/2018 11:15 AM CDT documented in this encounter Patient Instructions * Patient Instructions* Mildred Landers, [employer]-BC - 12/13/2018 11:00 AM CDT Images from the original note were not included. Patient Education Controlling Your Blood Pressure Through Lifestyle The Basics Written by the doctors and editors at [facility] What does my lifestyle have to do with my blood pressure???--??The things you do and the foods you eat have a big effect on your blood pressure and your overall health. Following the right lifestyle can: ?? Lower your blood pressure or keep you from getting high blood pressure in the first place ?? Reduce your need for blood pressure medicines ?? Make medicines for high blood pressure work better, if you do take them ?? Lower the chances that you'll have a heart attack or stroke, or develop kidney disease Which lifestyle choices will help lower my blood pressure???--??Here's what you can do: ?? Lose weight (if you are overweight) ?? Choose a diet rich in fruits, vegetables, and low-fat dairy products, and low in meats, sweets, and refined grains ?? Eat less salt (sodium) ?? Do something active for at least 30 minutes a day on most days of the week ?? Limit the amount of alcohol you drink If you have high blood pressure, it's also very important to quit smoking (if you smoke). Quitting smoking might not bring your blood pressure down. But it will lower the chances that you'll have a heart attack or stroke, and it will help you feel better and live longer. Start low and go slow??--??The changes listed above might sound like a lot, but don't worry. You don't have to change everything all at once. The baker to improving your lifestyle is to start low and go slow. Choose 1 small, specific thing to change and try doing it for a while. If it works for you, keep doing it until it becomes a habit. If it doesn't, don't give up. Choose something else to change and see how that goes. Let's say, for example, that you would like to improve your diet. If you're the type of person who eats cheeseburgers and Austrian fries all the time, you can't switch to eating just salads from one day to the next. When people try to make changes like that, they often fail. Then they feel frustratedand tend to give up. So instead of trying to change everything about your diet in 1 day, change 1 or 2 small things about your diet and give yourself time to get used to those changes. For instance, keep the cheeseburger but give up the Austrian fries. Or eat the same things but cut your portions in half. As you find things that you are able to change and stick with, keep adding new changes. In time, you will see that you can actually change a lot. You just have to get used to the changes slowly. Lose weight??--??When people think about losing weight, they sometimes make it more complicated than it really is. To lose weight, you have to either eat less or move more. If you do both of those things, it's even better. But there is no single weight-loss diet or activity that's better than any other. When it comes to weight loss, the most effective plan is the one that you'll stick with. Improve your diet??--??There is no single diet that is right for everyone. But in general, a healthy diet can include: ?? Lots of fruits, vegetables, and whole grains ?? Some beans, peas, lentils, chickpeas, and similar foods ?? Some nuts, such as walnuts, almonds, and peanuts ?? Fat-free or low-fat milk and milk products ?? Some fish To have a healthy diet, it's also important to limit or avoid sugar, sweets, meats, and refined grains. (Refined grains are found in white bread, white rice, most forms of pasta, and most packaged snack foods.) Reduce salt??--??Many people think that eating a low-sodium diet means avoiding the salt shaker andnot adding salt when cooking. The truth is, not adding salt at the table or when you cook will onlyhelp a little. Almost all of the sodium you eat is already in the food you buy at the grocery storeor at restaurants (figure 1). The most important thing you can do to cut down on sodium is to eat less processed food. That meansthat you should avoid most foods that are sold in cans, boxes, jars, and bags. You should also eat in restaurants less often. To reduce the amount of sodium you get, buy fresh or fresh-frozen fruits, vegetables, and meats. (Fresh-frozen foods have had nothing added to them before freezing.) Then you can make meals at home, from scratch, with these ingredients. As with the other changes, don't try to cut out salt all at once. Instead, choose 1 or 2 foods thathave a lot of sodium and try to replace them with low- sodium choices. When you get used to those low-sodium options, find another food or 2 to change. Then keep going, until all the foods you eat aresodium-free or low in sodium. Become more active??--??If you want to be more active, you don't have to go to the gym or get all sweaty. It is possible to increase your activity level while doing everyday things you enjoy. Walking, gardening, and dancing are just a few of the things that you might try. As with all the other changes, the baker is not to do too much too fast. If you don't do any activity now, start by walking for just a few minutes every other day. Do that for a few weeks. If you stick with it, try doing it for longer. But if you find that you don't like walking, try a different activity. Drink less alcohol??--??If you are a woman, do not have more than 1 standard drink of alcohol a day. If you are a man, do not have more than 2. A standard drink is: ?? A can or bottle that has 12 ounces of beer ?? A glass that has 5 ounces of wine ?? A shot that has 1.5 ounces of whiskey Where should I start???--??If you want to improve your lifestyle, start by making the changes that you think would be easiest for you. If you used to exercise and just got out of the habit, maybe it would be easy for you to start exercising again. Or if you actually like cooking meals from scratch,maybe the first thing you should focus on is eating home-cooked meals that are low in sodium. Whatever you tackle first, choose specific, realistic goals, and give yourself a deadline. For example, do not decide that you are going to exercise more. Instead, decide that you are going to walkfor 10 minutes on Sunday, Sunday, and Sunday, and that you are going to do this for the next 2 weeks. When lifestyle changes are too general, people have a hard time following through. Now go. You can do it! All topics are updated as new evidence becomes available and our peer review process is complete. This topic retrieved from [employer] on: August 14, 2018. Topic 91058 Version 6.0 Release: 27.2.3 - C27.145 ?2019??[employer] and/or its affiliates.??All rights reserved. figure 1: Sources of sodium in your diet Graphic 96366 Version 2.0 Consumer Information Use and Disclaimer This information is not specific medical advice and does not replace information you receive from your health care provider. This is only a brief summary of general information. It does NOT include all information about conditions, illnesses, injuries, tests, procedures, treatments, therapies, discharge instructions or life-style choices that may apply to you. You must talk with your health care provider for complete information about your health and treatment options. This information should not be used to decide whether or not to accept your health care provider's advice, instructions or recommendations. Only your health care provider has the knowledge and training to provide advice that is right for you.The use of [employer] content is governed by the [employer] Terms of Use. ??2019 [employer]. All rights reserved. Copyright ?2019??[employer]. and/or its affiliates.??All rights reserved. documented in this encounter Progress Notes * KIERSTEN Bonner - 12/13/2018 11:00 AM CDT Reason for Visit: Establish Care and Cough (cough x 1 month, he has a mold allergy and they found mold in basement this week that they are not sure how long it has been there. ) History of Present Illness: Roger Kathleen is 28-year-old year-old male who presents to [facility] to establish care with concerns of a mold allergy. Pt reports coughing x 1 months. Denies fever, rash, sore throat, rash, diarrhea, or vomiting. Had asthma as a child, but denies SOB or wheezing. Pt reports cleaned basement out one week ago and mold was noted. Pt reports symptoms have improved since removal of moldy items. Pt has has some clear to white sputum production without blood. Vaccinations records are not available for review during visit, but pt states is up to date on Tdapand Hepatitis A and B. ROS: Review of Systems Constitutional: Negative. Negative for chills and fever. HENT: Negative. Eyes: Negative. Respiratory: Positive for cough. Negative for hemoptysis, sputum production, shortness of breath and wheezing. Cardiovascular: Negative. Gastrointestinal: Negative. Genitourinary: Negative. Musculoskeletal: Negative. Skin: Negative. Neurological: Negative. Psychiatric/Behavioral: Negative. Medications: Current Outpatient Medications: ??? loratadine 10 MG tablet, Take 1 tablet (10 mg total) by mouth daily., Disp: 30 tablet, Rfl: 2 ??? predniSONE 20 MG tablet, Take 2 tablets (40 mg total) by mouth daily for 5 days., Disp: 10 tablet, Rfl: 0 No Known Allergies Past Medical History: Diagnosis Date ??? Epididymitis ??? Varicella history as a child Past Surgical History: Procedure Laterality Date ??? MYRINGOTOMY Social History Socioeconomic History ??? Marital status: Spouse name: Not on file ??? Number of children: Not on file ??? Years of education: Not on file ??? Highest education level: Not on file Occupational History ??? Not on file Social Needs ??? Financial resource strain: Not on file ??? Food insecurity: Worry: Not on file Inability: Not on file ??? Transportation needs: Medical: Not on file Non-medical: Not on file Tobacco Use ??? Smoking status: Never Smoker ??? Smokeless tobacco: Never Used Substance and Sexual Activity ??? Alcohol use: No Frequency: Never ??? Drug use: No ??? Sexual activity: Not on file Lifestyle ??? Physical activity: Days per week: Not on file Minutes per session: Not on file ??? Stress: Not on file Relationships ??? Social connections: Talks on phone: Not on file Gets together: Not on file Attends church service: Not on file Active member of club or organization: Not on file Attends meetings of clubs or organizations: Not on file Relationship status: Not on file ??? Intimate partner violence: Fear of current or ex partner: Not on file Emotionally abused: Not on file Physically abused: Not on file Forced sexual activity: Not on file Other Topics Concern ??? Not on file Social History Narrative ??? Not on file Family History Problem Relation Name Age of Onset ??? Hypertension Father ??? Cancer Maternal Grandmother lung ??? Diabetes Neg Hx ??? Heart Attack Neg Hx ??? Stroke Neg Hx Family Status Relation Name Status ??? Father (Not Specified) ??? MGM (Not Specified) ??? Neg Hx (Not Specified) Physical Exam Constitutional: He is oriented to person, place, and time. He appears well- developed and well-nourished. HENT: Head: Normocephalic and atraumatic. Right Ear: External ear normal. Tympanic membrane is not perforated, not erythematous, not retracted and not bulging. Left Ear: External ear normal. Tympanic membrane is not perforated, not erythematous, not retractedand not bulging. Nose: Nose normal. No mucosal edema or rhinorrhea. Mouth/Throat: Oropharynx is clear and moist. No oropharyngeal exudate, posterior oropharyngeal edema or posterior oropharyngeal erythema. Eyes: Conjunctivae and EOM are normal. Neck: Normal range of motion. Neck supple. No tracheal deviation present. No thyromegaly present. Cardiovascular: Normal rate, regular rhythm and normal heart sounds. No murmur heard. Pulmonary/Chest: Effort normal and breath sounds normal. No respiratory distress. He has no wheezes. He has no rhonchi. He has no rales. Musculoskeletal: Normal range of motion. He exhibits no edema. Lymphadenopathy: He has no cervical adenopathy. Neurological: He is alert and oriented to person, place, and time. Skin: Skin is warm and dry. No rash noted. No erythema. No pallor. Psychiatric: He has a normal mood and affect. His behavior is normal. Judgment and thought content normal. Vitals reviewed. Filed Vitals: 12/13/18 1115 BP: 142/76 Pulse: 82 Resp: 20 Temp: 98.1 ??F (36.7 ??C) TempSrc: Oral SpO2: 98% Weight: 96.1 kg (211 lb 12.8 oz) Height: 5' 10 (1.778 m) Body mass index is 30.39 kg/m??. Assessment Encounter Diagnose(s) ICD-10-CM ICD-9-CM SNOMED CT(R) 1. Cough R05 786.2 COUGH predniSONE 20 MG tablet loratadine 10 MG tablet XR CHEST PA+LAT CBC W/DIFF AUTOMATED 2. Seasonal allergic rhinitis due to pollen J30.1 477.0 ALLERGIC RHINITIS DUE TO POLLEN loratadine 10 MG tablet Recommendations and Plan: 1. Cough Provided pt with steroid course for relief of symptoms. Discussed likely allergic or viral in origin. Discussed as persisted for over 4 weeks, may check chest XR and CBC. - predniSONE 20 MG tablet; Take 2 tablets (40 mg total) by mouth daily for 5 days. Dispense: 10 tablet; Refill: 0 - loratadine 10 MG tablet; Take 1 tablet (10 mg total) by mouth daily. Dispense: 30 tablet; Refill:2 - XR CHEST PA+LAT; Future - CBC W/DIFF AUTOMATED; Future 2. Seasonal allergic rhinitis due to pollen Encouraged nasal irrigation and flonase. Discussed pt may use daily claritin for control of symptoms. - loratadine 10 MG tablet; Take 1 tablet (10 mg total) by mouth daily. Dispense: 30 tablet; Refill:2 KIERSTEN BONNER Cosigned by Sohail Mancera MD at 12/13/2018 1:35 PM CDT documented in this encounter Plan of Treatment Not on file documented as of this encounter Results * XR CHEST PA+LAT (12/19/2018 3:40 PM CDT) Anatomical Region Laterality Modality Chest Radiographic Judith ging 12/19/2018 3:40 PM CDT Impressions 12/19/2018 3:40 PM CDT Impression: Possible bronchitis, but no consolidative pneumonia. Interpreted By: Bear Harrington, 12/19/2018 3:40 PM Narrative 12/19/2018 3:40 PM CDT Date: 12/19/2018 3:32 PM Exam: XR CHEST PA+LAT Comparison: No comparisons. Technique: Two-view chest. History: Cough for one month. Findings: The cardiac silhouette and pulmonary vascularity are within normal limits. There are no consolidations nor effusions. There is no pneumothorax. There is bronchial wall thickening. The osseous structures are normal. Procedure Note Bear Harrington MD - 12/19/2018 Date: 12/19/2018 3:32 PM Exam: XR CHEST PA+LAT Comparison: No comparisons. Technique: Two-view chest. History: Cough for one month. Findings: The cardiac silhouette and pulmonary vascularity are within normal limits. There are no consolidations nor effusions. There is no pneumothorax. There is bronchial wall thickening. The osseous structures are normal. Impression: Possible bronchitis, but no consolidative pneumonia. Interpreted By: Bear Harrington, 12/19/2018 3:40 PM us Mildred [facility] Final Re sult * (ABNORMAL) CBC W/DIFF AUTOMATED (12/19/2018 3:19 PM CDT) [facility] Signature WBC 10.0 4.8 - 10.8 x10'3/uL 12/19/2018 [...] [facility] 12/19/2018 3:19 PM CDT us Mildred Landers [facility] Final Re sult [facility] [address] [place] [address], documented in this encounter Visit Diagnoses Diagnosis Cough- Primary Seasonal allergic rhinitis due to pollen Cough documented in this encounter Care Teams Single Pass Soil Stabilizer Operator Relationship Specialty Start Date End Date Mildred Landers, [facility]- [address] [facility], [address] [place] [address] PCP - General NURSE PRACTITIONER 12/13/18 documented as of this encounter
--- OUTSIDE RECORDS SUMMARY | 2024-03-12 23:57 | XMS_ITS | Encounter Summary ---
Author Organization [facility] Address [address] [place] [address]. 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 6 tablet 12/19/2018 09/01/2019 loratadine 10 MG tabletIndications :Cough,Seasonal allergic rhinitis due to pollen Take 1 tablet (10 mg total) by mouth daily. 30 tablet 2 12/13/2018 09/01/2019 predniSONE 20 MG tabletIndications :Bronchitis Take 1 tablet (20 mg total) by mouth 2 (two) times daily for 5 days. 10 tablet 12/19/2018 12/24/2018 documented as of this encounter Plan of Treatment Not on file documented as of this encounter Procedures Procedure Name Priority Date/Time Associated Diagnosis Comments XR CHEST PA+LAT Routine 12/19/2018 3:40 PM CDT Cough documented in this encounter Results * XR [...] Interpreted By: Bear Harrington, 12/19/2018 3:40 PM Mildred Landers [facility] Final Re sult documented in this encounter Visit Diagnoses Diagnosis Cough documented in this encounter Care Teams Trauma Director Relationship Specialty Start Date End Date Mildred Landers, [facility]- [address] [facility], [address] [place], [place] [address] PCP - General NURSE PRACTITIONER 12/13/18 documented as of this encounter
--- OUTSIDE RECORDS SUMMARY | 2024-03-12 23:57 | XMS_ITS | Encounter Summary ---
Author Organization [facility] Address [address] [place] [address]. 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
--- OUTSIDE RECORDS SUMMARY | 2024-03-12 23:57 | XMS_ITS | Encounter Summary ---
Author Organization [facility] Address [address] [place] [address]. 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
--- OUTSIDE RECORDS SUMMARY | 2024-03-12 23:57 | XMS_ITS | Encounter Summary ---
Author Organization [facility] Address [address] [place] [address]. 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 No / Unsure 04/26/2022 11:36 AM PIECE MAKER documented as of this encounter Plan of Treatment Not on file documented as of this encounter Visit Diagnoses Not on filedocumented in this encounter Additional Health Concerns Assessment Noted Time PHQ-9 Depression Total Score: 0 11/02/19 21 10:15 AM CDT documented as of this encounter Care Teams Principal Administrative Clerk Relationship Specialty Start Date End Date Mildred Landers, TREE CHIPPER-BC [address] [facility], [address] [place] [address] PCP - General NURSE PRACTITIONER 12/13/18 documented as of this encounter
--- OUTSIDE RECORDS SUMMARY | 2024-03-12 23:57 | XMS_ITS | Encounter Summary ---
Author Organization [facility] Address [address] [place] [address]. 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
--- OUTSIDE RECORDS SUMMARY | 2024-03-12 23:57 | XMS_ITS | Encounter Summary ---
Author Organization [facility] Address [address] [place] [address]. 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 No / Unsure 04/26/2022 11:36 AM TYPEWRITER TESTER documented as of this encounter Plan of Treatment Not on file documented as of this encounter Visit Diagnoses Not on filedocumented in this encounter Additional Health Concerns Assessment Noted Time PHQ-9 Depression Total Score: 0 11/02/19 21 10:15 AM CDT documented as of this encounter Care Teams Saloonkeeper Relationship Specialty Start Date End Date Mildred Landers, [facility] [address] [facility], [address] [place] [address] PCP - General NURSE PRACTITIONER 12/13/18 documented as of this encounter
--- OUTSIDE RECORDS SUMMARY | 2024-03-12 23:57 | XMS_ITS | Encounter Summary ---
Author Organization [facility] Address [address] [place] [address]. 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
--- OUTSIDE RECORDS SUMMARY | 2024-03-12 23:57 | XMS_ITS | Encounter Summary ---
Author Organization [facility] Address [address] [place] [address]. 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
--- OUTSIDE RECORDS SUMMARY | 2024-03-12 23:57 | XMS_ITS | Encounter Summary ---
Author Organization [facility] Address [address] [place] [address]. 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
--- OUTSIDE RECORDS SUMMARY | 2024-03-12 23:57 | XMS_ITS | Encounter Summary ---
Author Organization [facility] Address [address] [place] [address]. [place] [address] [place] [address] Care Team Providers Care Outside Sales Manager Name Role Phone [facility] Primary Care Provider + Reason for Referral * Consultation/Treatment (Routine) - Closed Specialty Diagnoses / Procedures Referred By Enrique murillo Referred To Contact GENERAL SURGERY / SURGERY Diagnoses Lipoma of torso Mildred Landers FNP-BC [address] [place] [address] Phone: tel: fax: Seun Ordaz MD Referral ID Status Reason Start Date Expiration Date Visits Re quested Visits Authorized [id number] Closed 11/01/2020 12/03/2021 1 1 Scheduling Instructions Pt would like information on out of pocket expenses if available prior to consult Reason for Visit * Reason Comments Lipoma Feels like it is get ting bigger, he has lost some weight, not painful Encounter Details Date Type Department Care Team (Late st Contact Info) Description 11/01/2020 10:00 AM CDT Office Visit [facility] [address] [place] [phone] Mildred Landers FNPNADEGE [address] [facility], [address] [place] [address] Lipoma (Feels like it is getting bigger, he has lost some weight, not painful) Social History Tobacco Use Types Packs/Day Years [...] on file 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 No / Unsure 11/01/2020 10:01 AM CDT documented as of this encounter Last Filed Vital Signs Vital Sign Reading Time Taken Comments Blood Pressure 124/72 11/01/2020 10:15 AM CDT Pulse 58 11/01/2020 10:15 AM CDT Temperature 36.7 ??C (98.1 ??F) 11/01/2020 10:15 AM C DT Respiratory Rate 18 11/01/2020 10:15 AM CDT Oxygen Saturation 98% 11/01/2020 10:15 AM CDT Inhaled Oxygen Concentration - - Weight 97.5 kg (215 lb) 11/01/2020 10:15 AM CDT Height 177.8 cm (5' 10 ) 11/01/2020 10:15 AM CDT Body Mass Index 30.85 11/01/2020 10:15 AM CDT documented in this encounter Progress Notes * Mildred Landers, LOUISE-NADEGE - 11/01/2020 10:00 AM CDT Reason for Visit: Lipoma (Feels like it is getting bigger, he has lost some weight, not painful) History of Present Illness: Roger Kathleen is 30-year-old year-old male who presents to [facility] with his daughter with concerns of increase in size of lipoma. Roger reports initially noted lesion 5 years ago and was the size of a marble. Now larger. Still soft, mobile, non-tender. Afebrile. Denies fevers or other symptoms. Feels well. ROS: Review of Systems Constitutional: Negative. Negative for chills and fever. HENT: Negative. Eyes: Negative. Respiratory: Negative. Cardiovascular: Negative. Gastrointestinal: Negative. Genitourinary: Negative. Musculoskeletal: Negative. Neurological: Negative. Medications: No current outpatient medications on [...] Gatherings with Friends and Family: ??? Attends [employer] Services: ??? Active Member of Clubs or [...] Neck: No tracheal deviation present. Cardiovascular: Normal rate, regular rhythm, normal heart sounds and intact distal pulses. No murmur heard. Pulmonary/Chest: No respiratory distress. He has no wheezes. He has no rales. Abdominal: Soft. Bowel sounds are normal. Lymphadenopathy: He has no cervical adenopathy. Neurological: He is alert and oriented to person, place, and time. Gait normal. Skin: He is not diaphoretic. No pallor. 2 x 3 cm mobile soft tissue mass noted to left chest. Non-tender. No erythema. No ulceration, drainage, or bleeding. Psychiatric: Judgment normal. Vitals reviewed. Filed Vitals: 11/01/20 1015 BP: 124/72 Pulse: 58 Resp: 18 Temp: 98.1 ??F (36.7 ??C) TempSrc: Temporal SpO2: 98% Weight: 97.5 kg (215 lb) Height: 5' 10 (1.778 m) Body mass index is 30.85 kg/m??. PHQ-9: Over the last two weeks, how often have you been bothered by any of the following problems? 11/01/2020 LITTLE INTEREST OR PLEASURE IN DOING THINGS 0-Not at All FEELING DOWN, DEPRESSSED,OR HOPELESS 0-Not at All PHQ2 DEPRESSION TOTAL SCORE 0 DEPRESSION SCREENING TOTAL SCORE 0 No flowsheet data found. Total Score: 0 Assessment Encounter Diagnose(s) ICD-10-CM ICD-9-CM SNOMED CT(R) 1. Lipoma of torso D17.1 214.1 LIPOMA OF TRUNK Recommendations and Plan: 1. Lipoma of torso Discussed lipoma. Referred for removal Pt still considering. Plan for consultation Discussed warning signs, but reviewed lesion is currently non-tender and mobile without other symptoms. KIERSTEN BONNER documented in this encounter Plan of Treatment Scheduled Referrals Name Type Priority Associated Diagnoses Orde r Schedule Ambulatory referral to General Surgery ([facility]) Referral Routine Lipoma of torso Ordered: 11/01/2020 documented as of this encounter Visit Diagnoses Diagnosis Lipoma of torso- Primary documented in this encounter Additional Health Concerns Assessment Noted Time PHQ-9 Depression Total Score: 0 11/02/19 21 10:15 AM CDT documented as of this encounter Care Teams Outside Sales Manager Relationship Specialty Start Date End Date Mildred Landers FNP-BC [address] [facility], [address] [place] [address] PCP - General NURSE PRACTITIONER 12/13/18 documented as of this encounter
--- OUTSIDE RECORDS SUMMARY | 2024-03-12 23:57 | XMS_ITS | Encounter Summary ---
Author Organization [facility] Address [address] [place] [address]. 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 No / Unsure 02/13/2022 3:56 PM SKATING RINK ICE MAKER documented as of this encounter Plan of Treatment Not on file documented as of this encounter Visit Diagnoses Not on filedocumented in this encounter Additional Health Concerns Assessment Noted Time PHQ-9 Depression Total Score: 0 11/02/19 21 10:15 AM CDT documented as of this encounter Care Teams Manager Of Product Relationship Specialty Start Date End Date Mildred Landers, OTORHINOLARYNGOLOGIST-BC [address] [facility], [address] [place] [address] PCP - General NURSE PRACTITIONER 12/13/18 documented as of this encounter
--- OUTSIDE RECORDS SUMMARY | 2024-03-12 23:57 | XMS_ITS | Encounter Summary ---
Author Organization [facility] Address [address] [place] [address]. [place] [address] [place] [address] Care Team Providers Care Dishcloth Folder Name Role Phone Mildred Landers [facility] Primary Care Provider + Reason for Visit * Reason Comments Bite possible tick bite o n left hip [id number] red and swollen, without pain Encounter Details Date Type Department Care Team (Late st Contact Info) Description 09/01/2019 3:40 PM CDT Office Visit [facility] [address] [place] [address] Salo Mancera MD [address] [address] Bite (possible tick bite on left hip [id number] red and swollen, without pain) Social History Tobacco Use Types Packs/Day Years [...] on file 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 No / Unsure 09/01/2019 4:01 PM CDT documented as of this encounter Last Filed Vital Signs Vital Sign Reading Time Taken Comments Blood Pressure 142/68 09/01/2019 4:09 PM CDT Pulse 92 09/01/2019 4:09 PM CDT Temperature 37.3 ??C (99.1 ??F) 09/01/2019 4:09 PM CD T Respiratory Rate 18 09/01/2019 4:09 PM CDT Oxygen Saturation 97% 09/01/2019 4:09 PM CDT Inhaled Oxygen Concentration - - Weight 98.9 kg (218 lb) 09/01/2019 4:09 PM CDT Height 177.8 cm (5' 10 ) 09/01/2019 4:09 PM CDT Body Mass Index 31.28 09/01/2019 4:09 PM CDT documented in this encounter Progress Notes * Salo Mancera MD - 09/01/2019 3:40 PM CDT Reason for Visit: Bite (possible tick bite on left hip [id number] red and swollen, without pain) History of Present Illness: 29yo male for evaluation. Bite, left anterior hip. Unsure of specific insect, about 2cm x 4cm. Has been working in tall grass. Denies pruritis, no pain, no tenderness. No fever/chills. No other associated symptoms, rash elsewhere. ROS: Review of Systems Constitutional: Negative for chills and fever. Respiratory: Negative for cough and shortness of breath. Cardiovascular: Negative for chest pain. Medications: No current outpatient medications on file. [...] ??? Highest education level: Not on file Social History Tobacco Use ??? Smoking status: Never Smoker ??? Smokeless tobacco: Never Used Substance Use Topics ??? Alcohol use: No Frequency: Never ??? Drug use: No Family History Problem Relation Name Age of Onset ??? Hypertension Father ??? Cancer Maternal Grandmother lung ??? Diabetes Neg Hx ??? Heart Attack Neg Hx ??? Stroke Neg Hx Family Status Relation Name Status ??? Father (Not Specified) ??? MGM (Not Specified) ??? Neg Hx (Not Specified) Filed Vitals: 09/01/19 1609 BP: (!) 142/68 Pulse: 92 Resp: 18 Temp: 99.1 ??F (37.3 ??C) TempSrc: Oral SpO2: 97% Weight: 98.9 kg (218 lb) Height: 5' 10 (1.778 m) Physical Exam Constitutional: He is oriented to person, place, and time. He appears well- developed and well-nourished. HENT: Head: Normocephalic and atraumatic. Cardiovascular: Normal rate and regular rhythm. Pulmonary/Chest: Effort normal and breath sounds normal. Abdominal: Soft. Neurological: He is alert and oriented to person, place, and time. Skin: Skin is warm and dry. Left anterior hip 2x4cm area of erythema Somewhat linear shaped Possible central area of bite. Nursing note and vitals reviewed. Diagnoses/Impression: 1. Insect bite of left thigh, initial encounter Recommendations and Plan: 1. Insect bite, left upper thigh. Noted 4 days ago. Unsure of specific insect. No significant symptoms today. Discussed options, continue monitor, consider OTC steroid cream if symptoms. Discussed natural course and warning signs. Fu as needed. No orders of the defined types were placed in this encounter. SALO MANCERA Referring Provider: No ref. provider found PCP: KIERSTEN ARMIJO documented in this encounter Plan of Treatment Not on file documented as of this encounter Visit Diagnoses Diagnosis Insect bite of left thigh, initial encounter- Primary documented in this encounter Care Teams Dishcloth Folder Relationship Specialty Start Date End Date Mildred Landers FNP-BC [address] [facility], [address] [place] [address] PCP - General NURSE PRACTITIONER 12/13/18 documented as of this encounter
--- OUTSIDE RECORDS SUMMARY | 2024-03-12 23:57 | XMS_ITS | Encounter Summary ---
Author Organization [facility] Address [address] [place] [address]. [place] [address] [place] [address] Care Team Providers Care Desk Clerks Supervisor Name Role Phone Mildred Landers [facility] Primary Care Provider + Reason for Visit * Reason Onset Date Comments Concerns 01/17/2021 Encounter Details Date Type Department Care Team (Late st Contact Info) Description 01/17/2021 Telephone [facility] [address] [place] [phone] Mildred Landers, [facility] [address] [facility], [facility] [address] [place] [address] Concerns Social History Tobacco Use Types Packs/Day Years [...] on file 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 No / Unsure 01/14/2021 7:37 PM CDT documented as of this encounter Progress Notes * Rae Saeed RN - 01/17/2021 4:51 PM CDT Pt informed of gabapentin and directions of use. Pt said to send the Rx to the pharmacy. He is not sure if he will take it or not. His pain is tolerable now. * Rae Saeed RN - 01/17/2021 4:46 PM CDT Chest pain likely from shingles. Possibly by D dimer was elevated. He can use gabapentin 100 mg Q HS x 3 days, Then increase to BID x three days, then to TID for pain secondary to shingles. Schedule a follow up visit if not relief or erythema/drainag e from site * Rae Saeed RN - 01/17/2021 10:00 AM CDT Spoke with pt and he developed a rash on right side, right below nipple line wrapped around the side. Blister like clusters. Was prescribed Valacyclovir . Said pain is tolerable. Tingling and burningsensation. He went to the ER Sunday night d/t elevated ddimer. Pt states everything checked out ok. Discussed shingles care and precautions. States he had a neck ache yesterday but went away. He said he was working in the basement and it could of been from that. Pt informed to call back if pain is consistent. Do you want to see him in the office this week yet? I told him to call if any worsening symtpoms. * Rae Saeed RN - 01/17/2021 9:50 AM CDT ----- Message from KIERSTEN Bonner sent at 01/14/2021 7:05 PM CDT ----- Oncall provider, Ronda Causey, sent pt to ER Pt may need follow up next week. * Kim Boston - 01/17/2021 7:52 AM CDT Pt was seen yesterday thru [facility] and he has shingles and would like to speak with Valeria nurse documented in this encounter Plan of Treatment Not on file documented as of this encounter Visit Diagnoses Diagnosis Shingles- Primary Herpes zoster without mention of complication documented in this encounter Additional Health Concerns Assessment Noted Time PHQ-9 Depression Total Score: 0 11/02/19 21 10:15 AM CDT documented as of this encounter Care Teams Desk Clerks Supervisor Relationship Specialty Start Date End Date Mildred Landers FNP- [address] [facility], [address] [place] [address] PCP - General NURSE PRACTITIONER 12/13/18 documented as of this encounter
--- OUTSIDE RECORDS SUMMARY | 2024-03-12 23:57 | XMS_ITS | Clinical Summary ---
Author Organization [facility] Address [address] [place] [address]. [place], [place] [address] [place] [address] Care Team Providers Care Pbx Inspector Name Role Phone Mildred Landers [facility] Primary Care Provider + Allergies No known active allergies Medications No known medications Active Problems No known active problems Immunizations Name Administration Dates Next Due Dtp 07/18/1996, 3,1991,09/03/18 92,1991 Flucelvax 2 YRS+ (Multi-Dose Vial) 03/08/2018 Hepatitis B Pediatric 06/27/2001,01/24/2001,11/25 Influenza Adult (Generic) 03/08/2018 MMR 07/18/1996,12/28/1992 Opv 07/18/1996, 3,1991,09/03/18 92,1991 Polio Opv (Generic) 07/18/1996, 3,1991,09/03/18 92,1991 Tdap (Generic) 06/16/2018 Family History Medical History Relation Comments Hypertension Father Cancer Maternal Grandmother lung Diabetes Neg Hx Heart Attack Neg Hx Stroke Neg Hx Relation Status Comments Father Maternal Grandmother Social History Tobacco Use Types Packs/Day Years [...] on file 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 Gender Identity Not on file Sexual Orientation Not on file Last Filed Vital Signs Vital Sign Reading Time Taken Comments Blood Pressure 142/88 04/26/2022 4:36 PM DOG BARBER Pulse 80 04/26/2022 4:23 PM DOG BARBER Temperature 37.3 ??C (99.1 ??F) 04/26/2022 4:23 PM CS T Respiratory Rate 18 04/26/2022 4:23 PM DOG BARBER Oxygen Saturation 98% 04/26/2022 4:23 PM DOG BARBER Inhaled Oxygen Concentration - - Weight 106.1 kg (234 lb) 04/26/2022 4:23 PM DOG BARBER Height 177.8 cm (5' 10 ) 10/10/2022 12:59 PM CDT Body Mass Index 33.58 04/26/2022 4:23 PM DOG BARBER Plan of Treatment Health Maintenance Due Date Last Done Comments Annual Physical 1994 Hepatitis C 2009 COVID-19 Vaccine ( season) 2023 01/31/2021, 01/02/2021 Influenza Adult (#1) 2023 03/08/2018, 03/08/20 18 DTaP, Tdap and Td Vaccines (2 - Td or Tdap) 06/16/2028 06/16/2018, 07/18/1996, 11/12/1992, Additional history exists Hepatitis B Vaccines Completed 06/27/2001, 01/24/2001, 12/20/2000 HPV Vaccines Aged Out No longer eligi ble based on patient's age to complete this topic Meningococcal Vaccine Aged Out No flor trudy eligible based on patient's age to complete this topic Pneumococcal Vaccine: Pediatrics (0 to 5 Years) and At-Risk Patients (6 to 64 Years) Aged Out No longer eligible based on patient's age to complete this topic RSV Immunizations Under 20 Months Aged Out No longer eligible based on patient's age to complete this topic Insurance [facility] Care Teams Pbx Inspector Relationship Specialty Start Date End Date Mildred Landers, DOLLY DRIVER- [address] [facility], [address] [place] [address] PCP - General NURSE PRACTITIONER 12/13/18
--- OUTSIDE RECORDS SUMMARY | 2024-03-12 23:57 | XMS_ITS | Encounter Summary ---
Author Organization [facility] Address [address] [place] [address]. 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 No / Unsure 01/26/2022 3:39 PM CDT documented as of this encounter Plan of Treatment Not on file documented as of this encounter Results * Pathology (01/26/2022 9:54 AM CDT) COPATH REPORT ?[facility] ? [address] ?[place] [address] ? [phone] ? Department of Pathology ? Pathology Report ? Surgical Pathology Report Patient Name: VIANNEY KATHLEEN ? : 1990 (Age: 31) ? Location: [facility] Gender: M ?Collected Date: 01/26/2022 Med Rec #: [id number] ?Date Received: 01/27/2022 Date Reported: 01/30/2022 Provider: [...] sectioned to show crow-yellow soft tissue throughout. Cake Inspector sections are submitted in two cassettes. ??SO/sml : Billing Fee Code(s): [address] [facility] 01/26/2022 9:54 AM CDT 01/27/2022 9:54 AM CDT Comment:Mass left anterior c hest wall us Hector Boyd MD PATHOLOGY/CYTOLOGY BERNARDINO ADAME Final Result Performing Organization Address City/State/[facility] Co de Phone Number [facility] [address] [place] [address], documented in this encounter Visit Diagnoses Diagnosis Soft tissue mass- Primary Disorders of soft tissue, unspecified documented in this encounter Additional Health Concerns Assessment Noted Time PHQ-9 Depression Total Score: 0 11/02/19 21 10:15 AM CDT documented as of this encounter Care Teams Television Engineer Relationship Specialty Start Date End Date Mildred Landers, IT TECHNICAL SUPPORT SPECIALIST- [address] [facility], [address] [place] [address] PCP - General NURSE PRACTITIONER 12/13/18 documented as of this encounter
--- OUTSIDE RECORDS SUMMARY | 2024-03-12 23:57 | XMS_ITS | Encounter Summary ---
Author Organization [facility] Address [address] [place] [address]. [place] [address] [place] [address] Care Team Providers Care Nurses Supervisor Name Role Phone None, Provider MD Primary Care Provider Unavaila ble Reason for Referral * Imaging (Emergency) - Closed Specialty Diagnoses / Procedures Referred By Contac t Referred To Contact RADIOLOGY Procedures US TESTICULAR Luis Hankins MD [address] [address] Phone: tel: fax: Referral ID Status Reason Start Date Expiration Date Visits Re quested Visits Authorized [id number] Closed 11/16/2018 12/18/2019 1 1 Reason for Visit * Reason Comments Testicular Pain Patient states histo ry of epididymitis in right testicle that was treated with course of antibiotics. Patient states that he has the same pain and swelling in his right testicle. Encounter Details Date Type Department Care Team (Late st Contact Info) Description 11/16/2018 8:01 AM CDT - 11/16/2018 10:22 AM CDT Emergency [facility] Emergency Room [address] [place] [address] Luis Hankins MD [address] [id number] Testicular Pain (Patient states history of epididymitis in right testicle that was treated with course of antibiotics. Patient states that he has the same pain and swelling in his right testicle. 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 Gender Identity Not on file Sexual Orientation Not on file documented as of this encounter Last Filed Vital Signs Vital Sign Reading Time Taken Comments Blood Pressure 146/74 11/16/2018 8:10 AM CDT Pulse 50 11/16/2018 8:10 AM CDT Temperature 36.7 ??C (98 ??F) 11/16/2018 8:10 AM CDT Respiratory Rate 16 11/16/2018 8:10 AM CDT Oxygen Saturation 99% 11/16/2018 8:10 AM CDT Inhaled Oxygen Concentration - - Weight 97.5 kg (215 lb) 11/16/2018 8:10 AM CDT Height 177.8 cm (5' 10 ) 11/16/2018 8:10 AM CDT Body Mass Index 30.85 11/16/2018 8:10 AM CDT documented in this encounter Discharge Instructions * Discharge Instructions* Luis Hankins MD - 11/16/2018 10:10 AM CDT I suspect a recurrent - likely partially treated prior Epididymitis or inflammation/infection near testicle. Ultrasound was negative for mass/lesion/torsion today. Follow up with Primary doctor to ensure complete resolution, and would recommend urologist follow up as well, especially if recurrent again. Plan 14 days of antibiotic (give IM rocephin as well today). Also use supportive underwear and NSAIDS for comfort/pain. (ibuprofen/naproxen). * Attachments The following attachments cannot be sent through Care Everywhere. * Epididymitis Discharge Instructions (French) documented in this encounter Medications at Time of Discharge levofloxacin (LEVAQUIN) 750 MG tablet Take 1 tablet (750 mg total) by mouth daily for 14 days. 14 tablet 11/16/2018 11/30/2018 naproxen 500 MG tablet Take 1 tablet (500 mg total) by mouth 2 (two) times daily as needed (PAIN). 30 tablet 11/16/2018 12/13/2018 documented as of this encounter ED Notes * Luis Hankins MD - 11/16/2018 8:10 AM CDT Chief Complaint Chief Complaint Patient presents with ??? Testicular Pain Patient states history of epididymitis in right testicle that was treated with course of antibiotics. Patient states that he has the same pain and swelling in his right testicle. History of Present Illness Pt is 28 yo M, presents w/ right testicular pain. Pain present for past 3-5 days, gradually gettingworse. Similar pain 1 month ago , [facility] and dx w/ epididymitis treated w/ 10 daysof levaquin. No prior imaging. Denies trauma, denies sti's. Medical History ALLERGIES: No Known Allergies MEDICATIONS: Prior to Admission medications Medication Sig Start Date End Date Taking? Authorizing Provider levofloxacin (LEVAQUIN) 750 MG tablet Take 1 tablet (750 mg total) by mouth daily for 14 days. 11/16/18 11/30/18 Yes Luis Hankins MD naproxen 500 MG tablet Take 1 tablet (500 mg total) by mouth 2 (two) times daily as needed (PAIN). 11/16/18 Yes Luis Hankins MD PAST MEDICAL HISTORY: History reviewed. No pertinent past medical history. PAST SURGICAL HISTORY: History reviewed. No pertinent surgical history. FAMILY HISTORY: No family history on file. SOCIAL HISTORY: Social History Tobacco Use ??? Smoking status: Never Smoker ??? Smokeless tobacco: Never Used Substance Use Topics ??? Alcohol use: No Frequency: Never ??? Drug use: No Review of Systems Review of Systems Constitutional: Negative for fever. HENT: Negative for congestion. Eyes: Negative for pain. Respiratory: Negative for shortness of breath. Cardiovascular: Negative for chest pain. Gastrointestinal: Negative for abdominal pain. Genitourinary: Negative for dysuria. Musculoskeletal: Negative for myalgias. Skin: Negative for rash. Neurological: Negative for headaches. Psychiatric/Behavioral: The patient is not nervous/anxious. Physical Exam Filed Vitals: 11/16/18 0810 BP: 146/74 Pulse: 50 Resp: 16 Temp: 98 ??F (36.7 ??C) TempSrc: Temporal SpO2: 99% Weight: 97.5 kg (215 lb) Height: 5' 10 (1.778 m) Physical Exam Constitutional: He is oriented to person, place, and time. He appears well- developed and well-nourished. No distress. HENT: Head: Normocephalic and atraumatic. Eyes: EOM are normal. Pupils are equal, round, and reactive to light. Neck: Normal range of motion. Cardiovascular: Normal rate, regular rhythm and intact distal pulses. Pulmonary/Chest: Effort normal and breath sounds normal. No respiratory distress. Abdominal: Soft. Bowel sounds are normal. He exhibits no distension. There is no tenderness. There is no rebound. Genitourinary: Penis normal. Genitourinary Comments: Mild right testicular tenderness, normal lay, no erythema/warmth, no hernia/ mass palpated. Musculoskeletal: He exhibits no deformity. Neurological: He is alert and oriented to person, place, and time. No cranial nerve deficit. Skin: Skin is warm and dry. No rash noted. Psychiatric: He has a normal mood and affect. Vitals reviewed. Diagnostic Studies / Procedures ELECTROCARDIOGRAMS: No results found for this visit on 11/16/18. LABORATORY STUDIES: Results for orders placed or performed during the hospital encounter of 11/16/18 URINALYSIS WI REFLEX TO CULTURE Result Value Ref Range COLOR YELLOW TRANSPARENCY CLEAR Specific [place] (U) 1.020 1.000 - 1.030 U PH 5.5 5.0 - 9.0 LEUKOCYTE ESTERASE NEGATIVE NEGATIVE NITRITES NEGATIVE NEGATIVE PROTEIN, URINE NEGATIVE NEGATIVE URINE GLUCOSE NEGATIVE NEGATIVE U KETONES NEGATIVE NEGATIVE Urine Bilirubin NEGATIVE NEGATIVE BLOOD NEGATIVE NEGATIVE WBC/HPF NONE SEEN 0 - 5 /HPF RBC/HPF NONE SEEN 0 - 5 /HPF EPI/HPF NONE SEEN /HPF CULTURE & SENSITIVITY INDICATED? CULTURE IS NOT INDICATED IMAGING STUDIES US TESTICULAR (Results Pending) ED Course / Medical Decision Making Recommended US, given unusual recurrence and no prior imaging. Rule out torsion(less likely vs. Mass vs. Orchitis vs. Varicoele/hydrocele). More likely incompletely treated Epididymitis. Given US recommended, this would make patient ED (not urgent care). Patient informed of level of care and verbalizes understanding. Us obtained, no mass, torsion. Suspect recurrent mild epidydimytis. IM rocephin for gonorrhea and plan 14 days of levaquin for enteric and chlamydial coverage. Return if sudden worsening advised and PCP f/u advised. Given urology referral and encouraged as well. NSAIDs and supportive underwear for discomfort. Pt agrees to d/c, f/u and return plans. - Clinical Impression Epididymitis (Primary) Disposition: Discharge Luis Hankins MD 11/16/18 1030 documented in this encounter Plan of Treatment Not on file documented as of this encounter Procedures Procedure Name Priority Date/Time Associated Diagnosis Comments US TESTICULAR STAT 11/16/2018 9:36 AM CDT URINALYSIS WI REFLEX TO CULTURE STAT 11/16/2018 9:30 AM CDT CHLAMYDIA AND GC RNA TMA STAT 11/16/2018 9:30 AM CDT documented in this encounter Results * US TESTICULAR (11/16/2018 9:36 AM CDT) Anatomical Region Laterality Modality Pelvis Ultrasound 11/17/2018 1:52 PM CDT Impressions 11/17/2018 1:54 PM CDT IMPRESSION: Heterogeneous echotexture throughout both testicles. No discrete intratesticular mass lesion identified. Right testicle measures 5.8 x 2.4 x 3.7 cm. Left testicle measures 5.2 x 2.6 x 3.0 cm. Symmetric color and Doppler flow in both testicles without evidence of torsion. Tiny bilateral hydroceles. No varicocele. Tiny 4 mm benign cyst left epididymal head. Right and left epididymis otherwise unremarkable. Interpreted By: Diana Knowles 11/17/2018 1:52 PM Narrative 11/17/2018 1:54 PM CDT SCROTAL ULTRASOUND WITH COLOR-FLOW IMAGING 11/16/2018: HISTORY: Recurrent right scrotal pain. COMPARISON: None. Procedure Note Chicho Knowles MD - 11/17/2018 SCROTAL ULTRASOUND WITH COLOR-FLOW IMAGING 11/16/2018: HISTORY: Recurrent right scrotal pain. COMPARISON: None. IMPRESSION: Heterogeneous echotexture throughout both testicles. No discrete intratesticular mass lesion identified. Right testicle measures 5.8 x 2.4 x 3.7 cm. Left testicle measures 5.2 x 2.6 x 3.0 cm. Symmetric color and Doppler flow in both testicles without evidence of torsion. Tiny bilateral hydroceles. No varicocele. Tiny 4 mm benign cyst left epididymal head. Right and left epididymis otherwise unremarkable. Interpreted By: Diana Knowles, 11/17/2018 1:52 PM Luis Hankins MD ULTRASOUND Final Resu lt * CHLAMYDIA AND GC RNA TMA (11/16/2018 9:30 AM CDT) CHLAMYDIA TRACHOMATIS RNA TMA Not Detected Not Detected 11/18/2018 8:45 AM CDT [employer] ANDREA SWEENYE N.GONORRHOEAE RNA TMA (QST) Not Detected Not Detected 11/18/2018 8:45 AM CDT [employer] ANDREA SWEENEY Comment: This test was performed using the APTIMA COMBO2(R) Assay (GEN-PROBE(R)). The analytical performance characteristics of this assay, when used to test SurePath(R) specimens have been determined by [employer]. Test Performed by Miki Jacobs, [facility], [address] [place] [address] Martín Aguilar M.D., Ph.D., Director of Laboratories , CLIA [id number] URINE SPECIMEN / Unknown 11/16/2018 9:30 AM CDT us Luis Hankins MD MICROBIOLOGY - GENERAL ORD ERABLES Final Result [facility] [address] [place] [address], [place] [phone] * URINALYSIS WI REFLEX TO CULTURE (11/16/2018 9:30 AM CDT) COLOR (U) YELLOW 11/16/2018 9:49 AM CDT [facility] TRANSPARENCY CLEAR 11/16/2018 9:49 AM CDT [facility] SPECIFIC GRAVITY (U) 1.020 1.000 - 1.030 11/16/2018 9:49 AM CDT [facility] U PH 5.5 5.0 - 9.0 11/16/2018 9:49 AM CDT [facility] LEUKOCYTES (U) NEGATIVE NEGATIVE 11/16/2018 9:49 AM CDT [facility] NITRITES NEGATIVE NEGATIVE 11/16/2018 9:49 AM T [facility] PROTEIN (U) NEGATIVE NEGATIVE 11/16/2018 9:49 AM T [facility] URINE GLUCOSE NEGATIVE NEGATIVE 11/16/2018 9:49 AM T [facility] KETONES MG/DL (U) NEGATIVE NEGATIVE 11/16/2018 9:49 AM T [facility] BILIRUBIN (U) NEGATIVE NEGATIVE 11/16/2018 9:49 AM CDT [facility] BLOOD (U) NEGATIVE NEGATIVE 11/16/2018 9:49 AM CDT [facility] WBC/HPF NONE SEEN 0 - 5 /HPF 11/16/2018 9:49 AM CDT [facility] RBC/HPF NONE SEEN 0 - 5 /HPF 11/16/2018 9:49 AM CDT [facility] EPI/HPF NONE SEEN /HPF 11/16/2018 9:49 AM CDT [facility] CULTURE & SENSITIVITY INDICATED? CULTURE IS NOT INDICATED 11/16/2018 9:49 AM CDT [facility] URINE SPECIMEN OBTAINED BY CLEAN CATCH PROCEDURE / Unknown 11/16/2018 9:30 AM CDT Luis Hankins MD URINE ORDERABLES Final Res ult [facility] [address] [place] [address], [place] [phone] documented in this encounter Visit Diagnoses Diagnosis Epididymitis- Primary Orchitis and epididymitis, unspecified documented in this encounter Administered Medications Inactive Administered Medications - up to 3 most recent administrations Medication Order MAR Action Action Date Dose Rate Site cefTRIAXone (ROCEPHIN) 250 mg in lidocaine (PF) (XYLOCAINE) 1 % IM syringe 250 mg, Intramuscular, Once, 1 dose, On 11/16/18 at 0830 Given 11/16/2018 8:49 AM CDT 250 mg Le ft Deltoid naproxen (NAPROSYN) tablet 500 mg 500 mg, Oral, Once, 1 dose, On 11/16/18 at 0845, Administer with food Given 11/16/2018 8:49 AM CDT 500 mg documented in this encounter Active and Recently Administered Medications Times are shown in CDT. Scheduled Medication Order 11/14/2018 11/15/2018 11/16/2018 cefTRIAXone (ROCEPHIN) 250 mg in lidocaine (PF) (XYLOCAINE) 1 % IM syringe (COMPLETED) 250 mg, Intramuscular, Once, 1 dose, On 11/16/18 at 0830 0849 (Given - Provid er: Massimo Bowie RN) naproxen (NAPROSYN) tablet 500 mg (COMPLETED) 500 mg, Oral, Once, 1 dose, On 11/16/18 at 0845, Administer with food 0849 (Given - Provid er: Massimo Bowie RN) documented in this encounter Care Teams Nurses Supervisor Relationship Specialty Start Date End Date None, Provider, PCP - General 11/16/18 12/12/18 documented as of this encounter
== END 2024-03-08 17:15 | disposition home or self-care (01) ==
PROVIDERS: Emergency Provider Nurse Practitioner Family
DX: D17.1 Benign lipomatous neoplasm of skin and subcutaneous tissue of trunk (principal); D17.21 Benign lipomatous neoplasm of skin and subcutaneous tissue of right arm
CPT/HCPCS: 99212; G0463

== ENCOUNTER 2024-03-29 17:29 | Emergency (ER) | payer OTHER, SELFPAY ==
--- NOTE | 2024-03-29 17:31 | ED_ITS ---
HPI - URI/Sore Throat General Chief Complaint: Upper Respiratory Infection Stated Complaint: cough / congestion Time Seen by Provider: 03/29/24 17:31 Source: patient Mode of arrival: ambulatory Limitations: no limitations History of Present Illness HPI Narrative: Roger is a 33-year-old male patient presenting to the clinic today with complaints of cough and congestion x6 days. He reports initially he had fevers, chills, and body aches the cough and congestion. He reports those symptoms have resolved however he has lingering cough and congestion feels as though it may be getting into his chest. Has a productive cough at times with some white phlegm. He denies any shortness of breath or chest pain. MD elicited complaint: cough, nasal congestion and other Related Data Allergies Allergy/AdvReac Type Severity Reaction Status Date / Time No Known Allergies Allergy Verified 03/29/24 17:39 Review of Systems Review of Systems: Pertinent positives per HPI. Patient denies any fever, chills, rash, headache, visual changes, dizziness, shortness of breath, chest pain, palpitations, nausea, vomiting, diarrhea, constipation, abdominal pain, or any urinary issues. PMFSH Comments At the time of my signature, I reviewed and agree with the nursing past medical, surgical, social, and family history. There is no relevant family history pertinent to the patient complaint. Exam Narrative: General: Well-developed, well nourished, in no apparent distress Head: Normocephalic, atraumatic Eyes: Pupils equally round and reactive to light bilaterally, EOM intact, sclera and conjunctive clear, no discharge, lids normal Ears: TMs intact and clear, ear canals clear, no drainage, grossly hearing normal. Nose: Nares patent, clear nasal discharge, no inflammation, no sinus tenderness. Mouth: Oral pharynx without lesions or masses, good dentition, MMM. Postnasal drip Neck: Supple, trachea midline, no enlargement of anterior or posterior cervical nodes, no thyroid masses or goiter palpable. Cardio: Regular rate and rhythm, s1 and s2 normal, no murmur appreciated. Resp: Clear to auscultation bilaterally, no rhonchi, rales, wheezing or rubs Course Course Emergency Course: Portions of this record may have been created with voice recognition software. Level of Care: Express Care Visit Vital Signs Vital signs: Vital signs reviewed MDM - URI/Sore Throat MDM Narrative Medical decision making narrative: At the time of visit patient is resting comfortably on the exam table. Patient appears to be nontoxic. Plan: I suspect patient has URI with cough and congestion. Prescription for prednisone and albuterol inhaler was sent to the pharmacy. Supportive measures were discussed with the patient and they voiced understanding discharge instructions and agrees to treatment plan. Return precautions reviewed Differential Diagnosis Differential diagnosis: Likely upper respiratory infection, otitis media, sinusitis, viral infection, bronchitis, influenza, pharyngitis and other (COVID) Discharge Plan Discharge Clinical Impression: Upper respiratory infection with cough and congestion Patient Disposition: Home, Self-Care Condition: Stable Instructions: Antibiotic Form, Upper Respiratory Infection (ED) Additional Instructions: Take prescription medications only as prescribed-albuterol inhaler and prednisone Increase fluids and stay well hydrated Tylenol/motrin for pain/fever Flonase and OTC antihistamines as directed Vicks vapor rub to open sinuses Sinus rinses for congestion Cepacol spray, cough drops, throat lozenges, warm tea with honey/lemon, gargle salt water to soothe throat BRAT diet for diarrhea Clear liquids x 24 hours then advance as tolerated for nausea/vomiting Go to the ED if you develop a worsening in your condition- high fever not controlled by Tylenol or Motrin, dehydration, weakness, lethargy, shortness of breath, or chest pain. Follow up with your PCP in 3-5 days if symptoms persist. Patient Language: Maltese Prescriptions: New prednisone 20 mg tablet 40 mg PO DAILY 5 Days Qty: 10 0RF albuterol sulfate 90 mcg/actuation HFA aerosol inhaler 2 puff inhalation Q4-6H PRN (Reason: shortness of breath or wheezing) 30 Days Qty: 8.5 0RF Follow-up/Referrals: UNKNOWN,DOCTOR [Non-Staff] - Time of Disposition: 17:44 Quality NIHSS Nursing Documentation ED NIHSS nursing documentation: reviewed/agree
[2024-03-29 17:37] VITALS: BP 154/85; PULSE 55; RESP 18; TEMP 36.8; O2SAT 99
== END 2024-03-29 17:49 | disposition home or self-care (01) ==
PROVIDERS: Emergency Provider Nurse Practitioner Family
DX: J06.9 Acute upper respiratory infection, unspecified (principal); R05.9 Cough, unspecified
CPT/HCPCS: 99213; G0463